=== PATIENT | male | born 1950 | race African-American/Black ===

== ENCOUNTER → 2018-09-19 | Day surgery (SDC) | payer MEDICARE ==
[2018-09-18 17:08] LABS: BASOPHILS # (AUTO) 0.1 (0.0-0.1); BASOPHILS % 0.9 % (0.0-1.0); EOSINOPHILS # (AUTO) 0.1 (0.0-0.4); EOSINOPHILS % 1.9 % (0.0-6.0); HEMATOCRIT 42.9 % (38.2-49.6); LYMPHOCYTES # (AUTO) 1.6 (1.0-3.2); LYMPHOCYTES % 28.6 % (18.0-39.1); MEAN CORPUSCULAR HEMOGLOBIN 27.3 pg (28-32); MEAN CORPUSCULAR HGB CONC 32.6 g/dL (31-35); MEAN CORPUSCULAR VOLUME 83.8 fL (81-99); MONOCYTES # (AUTO) 0.4 (0.2-0.8); MONOCYTES % 7.3 % (4.4-11.3); NEUTROPHILS # (AUTO) 3.5 (2.1-6.9); NEUTROPHILS % 61.1 % (38.7-80.0); PLATELET COUNT 173 x10e3/uL (140-360); RED BLOOD COUNT 5.12 x10e6/uL (4.3-5.7); RED CELL DISTRIBUTION WIDTH 13.9 % (11.7-14.4)
[~2018-09-19] MED LIST: ALDACTONE25 MG PO; ASPIR 8181 MG PO; ATORVASTATIN CA20 MG PO; AVALIDE; AVALIDE 300-251 EACH PO; COREG3.125 MG PO; CRESTOR; CRESTOR20 MG PO; ELIQUIS PO; FAMOTIDINE20 MG PO; FENTANYL CITRATE/PF 100MCG/2 ML INJ ONE; FUROSEMIDE40 MG PO; GLIPIZIDE5 MG PO; GLUCOVANCE; GLUCOVANCE 5-51 EACH PO; JANUVIA100 MG PO; METOPROLOL TART25 MG PO; MIDAZOLAM HCL 2 MG/2 ML VIAL ONE; PLAVIX; PLAVIX75 MG PO; POTASSIUM CHLO10 ME1 PO; PROPOFOL IV EMULSION 10 MG/ML 50 ML VIAL ONE; [UNRECOGNIZED DRUG - OTHER]; [UNRECOGNIZED DRUG - REMARK]
--- OUTSIDE RECORDS SUMMARY | 2018-09-19 06:39 | XMS REPORT ---
Author Author Aniket Mcdonald Organization [employer] Address Unknown Phone Unavailable Care Team Providers Care Rural Sociologist Name Role Phone Aniket Mcdonald Unavailable Allergies, Adverse Reactions, Alerts Substance Reaction Event Type N.K.D.A. 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 Active Problem Chronic systolic (congestive) heart failure I50.22 Active Problem Atherosclerosis of [place] arteries of extremity with intermittent claudication I70.219 Active Problem Arteriosclerosis of both carotid arteries I65.23 Active Problem Atherosclerosis of [place] artery of both lower extremities with intermittent claudication I70.213 Active Assessment Arteriosclerosis of both carotid arteries I65.23 Active Assessment 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 Active Problem History of CVA (cerebrovascular accident) Z86.73 Active Assessment Abnormal electrocardiogram R94.31 Active Problem 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 Active Problem Pure hypercholesterolemia E78.01 Active Problem 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 Active Problem Atherosclerotic heart disease of [place] coronary artery without angina pectoris I25.10 Active Assessment Atherosclerotic heart disease of [place] coronary artery without angina pectoris I25.10 Active Assessment 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 Active Assessment Shortness of breath R06.02 Active Assessment Stented coronary artery Z95.5 Active Problem H/O carotid endarterectomy Z98.89 Active Problem Shortness of breath R06.02 Active Assessment Chronic systolic (congestive) heart failure I50.22 Active Problem Carotid disease, bilateral I77.9 Active Medications Medication Code System Code Instructions Start Date End Date Status Dosage Entresto NDC 11124295688 24-26 MG Orally daily Active 1 tablet Crestor NDC 16985081117 20 mg Orally Once a day Active 1 tablet GlipiZIDE [facility] 14817197827 5 MG Orally Once a day Active 1 tablet Clopidogrel Bisulfate [facility] 11931162648 75 mg Orally Once a day Active 1 tablet Aspirin EC Low Dose [facility] 80224287295 81 MG Orally Once a day Active 1 tablet Furosemide [facility] 00594719818 40 mg Orally twice a day (bid) Active 1 tablet Spironolactone [facility] 76584755217 25 MG Orally daily Mar 10, 2016 Active 1 tablet Albuterol Sulfate [facility] [address]-26 108 (90 Base) MCG/ACT Inhalation as needed (prn) Active 1 tablet Carvedilol [facility] 57857989929 12.5 MG Orally Twice a day Active 1 tablet Vital Signs Date/Time: October 18, 2016 BMI 22.80 Index Weight 150 lbs Height 68 in Temperature 97.5 F Cardiac Monitoring Heart Rate 66 /min Blood Pressure Diastolic 70 mm Hg Blood Pressure Systolic 122 mm Hg Results No Known Results Summary Purpose [employer] Submission
--- OUTSIDE RECORDS SUMMARY | 2018-09-19 06:39 | XMS REPORT ---
Author Author Aniket Mcdonald Organization [employer] Address Unknown Phone Unavailable Care Team Providers Care X Ray Technician Name Role Phone Aniket Mcdonald Unavailable Allergies, Adverse Reactions, Alerts Substance Reaction Event Type N.K.D.A. 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 Problem Chronic systolic (congestive) heart failure I50.22 Active Problem Atherosclerosis of [place] arteries of extremity with intermittent claudication I70.219 Active Problem Arteriosclerosis of both carotid arteries I65.23 Active Problem Atherosclerosis of [place] artery of both lower extremities with intermittent claudication I70.213 Active Assessment Shortness of breath R06.02 Active Assessment Arteriosclerosis of both carotid arteries I65.23 Active Problem History of CVA (cerebrovascular accident) Z86.73 Active Assessment 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 Active Problem 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 Active Problem Pure hypercholesterolemia E78.01 Active Problem 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 Active Problem Atherosclerotic heart disease of [place] coronary artery without angina pectoris I25.10 Active Assessment 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 Active Assessment Chronic systolic (congestive) heart failure I50.22 Active Assessment Stented coronary artery Z95.5 Active Assessment Atherosclerotic heart disease of [place] coronary artery without angina pectoris I25.10 Active Problem H/O carotid endarterectomy Z98.89 Active Problem Shortness of breath R06.02 Active Assessment 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 Problem Carotid disease, bilateral I77.9 Active Medications Medication Code System Code Instructions Start Date End Date Status Dosage Eliquis ND 94277533624 5 MG Orally twice a day (bid) Feb 19, 2017 Active 1 tablet Aspirin 325 mg ND 0 325 mg orally daily Active one tab GlipiZIDE [facility] 99506962839 5 MG Orally Once a day Active 1 tablet Atorvastatin Calcium [facility] 05462218657 40 MG Orally Once a day Active 1 tablet Clopidogrel Bisulfate [facility] 10910344272 75 mg Orally Once a day Inactive 1 tablet Furosemide [facility] 43852519304 40 mg Orally once a day Active 1 tablet Albuterol Sulfate [facility] [address]-18 108 (90 Base) MCG/ACT Inhalation as needed (prn) Active 1 tablet Crestor [facility] 86063105373 20 mg Orally Once a day Inactive 1 tablet Famotidine [facility] 64910064112 20 MG Orally Once a day Active 1 tablet at bedtime Metoprolol Tartrate [facility] 51888269809 25 MG Orally Twice a day Active 1/2 half tablet Entresto [facility] 12919093157 24-26 MG Orally daily Active 1 tablet Vital Signs Date/Time: Feb 19, 2017 BMI 24.93 Index Weight 164 lbs Height 68 in Temperature 95.3 F Cardiac Monitoring Heart Rate 61 /min Blood Pressure Diastolic 78 mm Hg Blood Pressure Systolic 122 mm Hg Results No Known Results Summary Purpose [employer] Submission
--- OUTSIDE RECORDS SUMMARY | 2018-09-19 06:39 | XMS REPORT ---
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 Problem Chronic systolic (congestive) heart failure I50.22 Active Problem Atherosclerosis of [place] arteries of extremity with intermittent claudication I70.219 Active Problem Arteriosclerosis of both carotid arteries I65.23 Active Problem Atherosclerosis of [place] artery of both lower extremities with intermittent claudication I70.213 Active Problem History of CVA (cerebrovascular accident) Z86.73 Active Problem 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 Active Problem Pure hypercholesterolemia E78.01 Active Problem 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 Active Problem Atherosclerotic heart disease of [place] coronary artery without angina pectoris I25.10 Active Problem H/O carotid endarterectomy Z98.89 Active Problem Shortness of breath R06.02 Active Problem Abnormal electrocardiogram R94.31 Active Problem Carotid disease, bilateral I77.9 Active Problem Stented coronary artery Z95.5 Active Medications Medication Code System Code Instructions Start Date End Date Status Dosage Xarelto [facility] 26992780939 20 mg Orally Once a day Dec 04, 2017 Active 1 tablet with food Results No Known Results Summary Purpose [employer]Works Submission
--- OUTSIDE RECORDS SUMMARY | 2018-09-19 06:39 | XMS REPORT ---
Author Author Tressa Mcdonald Organization [employer] Address Unknown Phone Unavailable Care Team Providers Care Senior Solutions Architect Name Role Phone Tressa Mcdonald CP Unavailable Allergies, Adverse Reactions, Alerts Substance Reaction Event Type N.K.D.A. 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 Active Problem Chronic systolic (congestive) heart failure I50.22 Active Problem Atherosclerosis of [place] arteries of extremity with intermittent claudication I70.219 Active Problem Arteriosclerosis of both carotid arteries I65.23 Active Problem Atherosclerosis of [place] artery of both lower extremities with intermittent claudication I70.213 Active Assessment Abnormal electrocardiogram R94.31 Active Assessment Pure hypercholesterolemia E78.01 Active Problem History of CVA (cerebrovascular accident) Z86.73 Active Assessment Atherosclerosis of [place] arteries of extremity with intermittent claudication I70.219 Active Problem 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 Active Problem Pure hypercholesterolemia E78.01 Active Problem 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 Active Problem Atherosclerotic heart disease of [place] coronary artery without angina pectoris I25.10 Active Assessment Atherosclerotic heart disease of [place] coronary artery without angina pectoris I25.10 Active Assessment Shortness of breath R06.02 Active Assessment 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 Active Assessment Carotid disease, bilateral I77.9 Active Problem H/O carotid endarterectomy Z98.89 Active Problem Shortness of breath R06.02 Active Assessment Chronic systolic (congestive) heart failure I50.22 Active Problem Carotid disease, bilateral I77.9 Active Medications Medication Code System Code Instructions Start Date End Date Status Dosage Metformin NDC 0 500 mg Oral twice a day (bid) July 12, 2015 Active 1 tab Januvia [facility] 80808588819 100 MG Orally Once a day Active 1 tablet Potassium Chloride Vaishnavi ER [facility] 47152901287 10 MEQ Orally Twice a day Feb 07, 2016 Active 1 tablet Aspirin EC Low Dose [facility] 24312735464 81 MG Orally Once a day Active 1 tablet Carvedilol [facility] 38214988824 12.5 MG Orally Twice a day Active 1 tablet Spironolactone [facility] 39132644646 25 MG Orally daily Active 1 tablet Crestor [facility] 82624916525 20 mg Orally Once a day Active 1 tablet Losartan Potassium [facility] 31426493465 100 mg Orally Once a day Active 1 tablet Losartan Potassium [facility] 57272199503 100 mg Orally Once a day Active 1 tablet Clopidogrel Bisulfate [facility] 86941170456 75 mg Orally Once a day Active 1 tablet Furosemide [facility] 15563846342 40 mg Orally three times a day (tid) Active 1 tablet Vital Signs Date/Time: May 13, 2015 BMI 22.80 Index Weight 150 lbs Height 68 in Temperature 96.2 F Cardiac Monitoring Heart Rate 91 /min Blood Pressure Diastolic 65 mm Hg Blood Pressure Systolic 122 mm Hg Results No Known Results Summary Purpose [employer]ClinicalWorks Submission
--- OUTSIDE RECORDS SUMMARY | 2018-09-19 06:39 | XMS REPORT ---
Author Author Aniket Mcdonald Organization [employer] Address Unknown Phone Unavailable Care Team Providers Care Grind Operator Name Role Phone Aniket Mcdonald Unavailable Allergies, Adverse Reactions, Alerts Substance Reaction Event Type N.K.D.A. 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 Problem Chronic systolic (congestive) heart failure I50.22 Active Problem Atherosclerosis of [place] arteries of extremity with intermittent claudication I70.219 Active Problem Arteriosclerosis of both carotid arteries I65.23 Active Problem Atherosclerosis of [place] artery of both lower extremities with intermittent claudication I70.213 Active Assessment Arteriosclerosis of both carotid arteries I65.23 Active Assessment 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 Active Problem History of CVA (cerebrovascular accident) Z86.73 Active Assessment Abnormal electrocardiogram R94.31 Active Problem 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 Active Problem Pure hypercholesterolemia E78.01 Active Problem 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 Active Problem Atherosclerotic heart disease of [place] coronary artery without angina pectoris I25.10 Active Assessment Atherosclerotic heart disease of [place] coronary artery without angina pectoris I25.10 Active [...] Instructions Start Date End Date Status Dosage Clopidogrel Bisulfate [facility] 87598175759 75 mg Orally Once a day Active 1 tablet Entresto [facility] 10663934364 24-26 MG Orally daily Active 1 tablet GlipiZIDE [facility] 60636910592 5 MG Orally Once a day Active 1 tablet Famotidine [facility] 18055909221 20 MG Orally Once a day Active 1 tablet at bedtime Aspirin 325 mg ND 0 325 mg orally daily Active one tab Atorvastatin Calcium ND 93849706512 40 MG Orally Once a day Active 1 tablet Furosemide ND 97940953919 40 mg Orally once a day Active 1 tablet Metoprolol Tartrate [facility] 26791281580 25 MG Orally Twice a day Active 1/2 half tablet Albuterol Sulfate [facility] [address]-25 108 (90 Base) MCG/ACT Inhalation as needed (prn) Active 1 tablet Crestor [facility] 18300556931 20 mg Orally Once a day Active 1 tablet Vital Signs Date/Time: Nov 22, 2016 BMI 23.57 Index Weight 155 lbs Height 68 in Temperature 98.6 F Cardiac Monitoring Heart Rate 71 /min Blood Pressure Diastolic 80 mm Hg Blood Pressure Systolic 132 mm Hg Results No Known Results Summary Purpose eClinicalWorks Submission
--- OUTSIDE RECORDS SUMMARY | 2018-09-19 06:39 | XMS REPORT | Continuity of Care Document ---
Author Author [facility] Interface Address Unknown Phone Unavailable Problems Problem Status Onset Date Classification Date Reported Comments Source DM w/ complication Active Diagnosis 01/04/2018 Tressa Mcdonald Chronic systolic heart failure Active Problem 01/04/2018 Tressa Mcdonald Carotid disease, bilateral Active Problem 01/04/2018 Tressa Mcdonald Arteriosclerosis of both carotid arteries Active Problem 01/04/2018 Tressa Mcdonald ICD in place Active Problem 01/04/2018 Tressa Mcdonald Atherosclerosis of [place] artery of both lower extremities with intermittent claudication Active Diagnosis 01/04/2018 Tressa Mcdonald Pure hypercholesterolemia Active Diagnosis 01/04/2018 Tressa Mcdonald Atherosclerosis of [place] arteries of extremity with intermittent claudication Active Problem 01/04/2018 Tressa Mcdonald Atherosclerotic heart disease of [place] coronary artery without angina pectoris Active Problem 01/04/2018 Tressa Mcdonald Atherosclerosis of coronary artery of [place] heart with angina pectoris Active Problem 01/04/2018 Tressa Mcdonald Stented coronary artery Active Problem 01/04/2018 Tressa Mcdonald H/O carotid endarterectomy Active Problem 01/04/2018 Tressa Mcdonald Shortness of breath Active Diagnosis 01/04/2018 Tressa Mcdonald Abnormal electrocardiogram Active Problem 01/04/2018 Tressa Mcdonald History of CVA Active Diagnosis 01/04/2018 Tressa Mcdonald ICD battery depletion Active Diagnosis 05/24/2017 Tressa Mcdonald Poor compliance Active Diagnosis 05/24/2017 Tressa Mcdonald 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 Active Diagnosis 12/12/2017 Tressa Mcdonald Angina Active Problem 06/23/2015 Tressa Mcdonald Mitral valve disorders Active Problem 06/23/2015 Tressa Mcdonald Other nonspecific abnormal cardiovascular system function study Active Problem 06/23/2015 Tressa Mcdonald Carotid artherosclerosis w/o infarction Active Problem 06/23/2015 Tressa Mcdonald Unspecified essential hypertension Active Problem 06/23/2015 Tressa Mcdonald CAD, [place] Coronary Artery Active Problem 06/23/2015 Tressa Mcdonald Shortness of breath Active Problem 06/23/2015 Tressa Mcdonald Hypercholesterolemia Active Problem 06/23/2015 Tressa Mcdonald Abnormal EKG Active Problem 06/23/2015 Tressa Mcdonald Postsurgical percutaneous transluminal coronary angioplasty status Active Problem 06/23/2015 Tressa Mcdonald HTN heart dis benign, without CHF Active Problem 06/23/2015 Tressa Mcdonald PTCA Status Active Problem 06/23/2015 Tressa Mcdonald Nonrheumatic tricuspid valve disorder Active Problem 06/23/2015 Tressa Mcdonald Nonrheumatic mitral insufficiency Active Problem 06/23/2015 Tressa Mcdonald Diabetes mellitus with complication Active Problem 06/23/2015 Tressa Mcdonald CHF Chronic Systolic Heart Failure Active Problem 06/23/2015 Tressa Mcdonald Benign hypertensive heart disease with heart failure Active Problem 06/23/2015 Tressa Mcdonald 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 Active Problem 06/23/2015 Tressa Mcdonald Pure hypercholesterolemia Active Problem 06/23/2015 Tressa Mcdonald Other ill-defined heart diseases Active Problem 06/23/2015 Tressa Mcdonald Carotid artery disease Active Problem 06/23/2015 Tressa Mcdonald Atherosclerosis of leg with intermittent claudication Active Problem 06/23/2015 Tressa Mcdonald Medications Medication Details Route Status Patient Instructions Ordering Provider Order Date Source Xarelto 1 tablet with food Orally Active 20 mg Orally Once a day Jeroudi 12/04/2017 Tressa Mcdonald Eliquis 1 tablet Orally Active 5 MG Orally twice a day (bid) Jeroudi 02/19/2017 Tressa Mcdonald Spironolactone 1 tablet Orally Active 25 MG Orally daily Jeroudi 03/10/2016 Tressa Mcdonald Potassium Chloride Vaishnavi ER 1 tablet Orally Active 10 MEQ Orally Twice a day Jeroudi 02/07/2016 Tressa Mcdonald Metformin 1 tab Oral Active 500 mg Oral twice a day (bid) Jeroudi 07/12/2015 Tressa Mcdonald Metformin 1 tab Oral Active 500 mg Oral twice a day (bid) Jeroudi 07/12/2015 Tressa Irina Miramontessavage Zaroxolyn 1 tablet Orally Active 5 MG Orally daily PRN [facility] 06/22/2015 [facility] Zaroxolyn 1 tablet Orally Active 5 MG Orally daily PRN [facility] 06/22/2015 [facility] Clopidogrel Bisulfate 1 tablet Orally Active 75 mg Orally Once a day [facility] Entresto 1 tablet Orally Active 24-26 MG Orally daily [facility] GlipiZIDE 1 tablet Orally Active 5 MG Orally Once a day [facility] Famotidine 1 tablet at bedtime Orally Active 20 MG Orally Once a day [facility] Aspirin 325 mg one tab orally Active 325 mg orally daily [facility] Atorvastatin Calcium 1 tablet Orally Active 40 MG Orally Once a day [facility] Furosemide 1 tablet Orally Active 40 mg Orally once a day [facility] Metoprolol Tartrate 1/2 half tablet Orally Active 25 MG Orally Twice a day [facility] Albuterol Sulfate 1 tablet Inhalation Active 108 (90 Base) MCG/ACT Inhalation as needed (prn) [facility] Crestor 1 tablet Orally Active 20 mg Orally Once a day [facility] Aspirin EC Low Dose 1 tablet Orally Active 81 MG Orally Once a day [facility] Carvedilol 1 tablet Orally Active 12.5 MG Orally Twice a day [facility] Januvia 1 tablet Orally Active 100 MG Orally Once a day [facility] Spironolactone 1 tablet Orally Active 25 MG Orally daily [facility] Losartan Potassium 1 tablet Orally Active 100 mg Orally Once a day [facility] Amoxicillin-Pot Clavulanate not defined Orally Active 600-42.9 MG/5ML Orally [facility] Lisinopril 1/2 half tablet Orally Active 5 MG Orally Once a day [facility] Klor-Con M10 1 tablet Orally Active 10 MEQ Orally Twice a day [facility] Albuterol Sulfate 1 tablet Orally Active 2 MG Orally Three times a day Jerdi Tressa Mcdonald Janumet 1 tablet with meals Orally Active 50-500 MG Orally daily Jerdi [facility] [place] Potassium Chloride Vaishnavi ER 1 tablet Orally Active 10 MEQ Orally Twice a day Jerdi [facility] [place] Vitamin D 1 tablet Orally Active 2000 UNIT Orally Once a day [facility] [place] Januvia 1 tablet Orally Active 25 MG Orally daily Jerdi [facility] Irina [facility] Januvia 1 tablet Orally Active 25 MG Orally daily [facility] Carvedilol 1 tablet Orally Active 12.5 MG Orally [facility] Allergies, Adverse Reactions, Alerts Substance Category Reaction Severity Reaction type Status Date Reported Comments Source N.K.D.A. Adverse Reaction Info Not Available Adverse Reaction Active 09/19/2017 Karynamed O [place] Immunizations Immunization Date Given Site Status Last Updated Comments Source Results Order Name Results Value Reference Range Date Interpretation Comments Source Vital Signs Vital Sign Value Date Comments Source Weight 171 09/19/2017 Karynamed [place] Height 68 09/19/2017 Mohamed O [place] Temperature Oral (F) 96.4 F 09/19/2017 [facility] [place] Heart Rate 64 09/19/2017 Mohamed [facility] [place] Diastolic (mm Hg) 80 09/19/2017 Mohamed O [place] Systolic (mm Hg) 130 09/19/2017 [place]named [place] Weight 168 [facility]22[facility]2017 [facility] Height 68 05/22/2017 Mohamed O [place] Temperature Oral (F) 96.0 F 05/22/2017 Mohamed O [place] Heart Rate 64 05/22/2017 Mohamed O [place] Diastolic (mm Hg) 78 05/22/2017 Mohamed O [place] Systolic (mm Hg) 122 05/22/2017 Karynamed [place] Weight 164 02/19/2017 Mohamed O [place] Height 68 02/19/2017 Mohamed O [place] Temperature Oral (F) 95.3 F 02/19/2017 Mohamed O [place] Heart Rate 61 02/19/2017 Mohamed O [place] Diastolic (mm Hg) 78 02/19/2017 Mohamed O [place] Systolic (mm Hg) 122 02/19/2017 Mohamed O [place] Weight 155 11/22/2016 Mohamed O [place] Height 68 11/22/2016 Mohamed O [place] Temperature Oral (F) 98.6 F 11/22/2016 Mohamed O [place] Heart Rate 71 11/22/2016 Mohamed O [place] Diastolic (mm Hg) 80 11/22/2016 Mohamed O [place] Systolic (mm Hg) 132 11/22/2016 Mohamed O [place] Weight 150 10/18/2016 Mohamed O [place] Height 68 10/18/2016 Mohamed O [place] Temperature Oral (F) 97.5 F 10/18/2016 Mohamed O [place] Heart Rate 66 10/18/2016 Mohamed O [place] Diastolic (mm Hg) 70 10/18/2016 Mohamed O [place] Systolic (mm Hg) 122 10/18/2016 Mohamed O [place] Weight 141 07/12/2015 Mohamed O [place] Height 68 07/12/2015 Mohamed O [place] Temperature Oral (F) 96.2 F 07/12/2015 Mohamed O [place] Heart Rate 90 07/12/2015 Mohamed O [place] Diastolic (mm Hg) 60 07/12/2015 Mohamed O [place] Systolic (mm Hg) 122 07/12/2015 Mohamed O [place] Weight 150 05/13/2015 Mohamed O [place] Height 68 05/13/2015 Mohamed O [place] Temperature Oral (F) 96.2 F 05/13/2015 Mohamed O [place] Heart Rate 91 05/13/2015 Mohamed O [place] Diastolic (mm Hg) 65 05/13/2015 Mohamed O [place] Systolic (mm Hg) 122 05/13/2015 Mohamed O Jeroudi Encounters Location Location Details Encounter Type Encounter Number Reason For Visit Attending Provider ADM Date DC Date Status Source MD DAREK Grissom Unknown [id number] 06/02/2014 06/02/2014 MD DAREK Gong Unknown [id number] 06/02/2014 06/02/2014 Tressa Mcdonald MD PA Unknown [id number] 04/13/2015 04/13/2015 Tressa Mcdonald MD PA Unknown [id number] 04/13/2015 04/13/2015 Tressa Mcdonald MD PA Unknown [id number] 06/22/2015 06/22/2015 Tressa Mcdonald Procedures Procedure Code Date Perfomer Comments Source
--- OUTSIDE RECORDS SUMMARY | 2018-09-19 06:39 | XMS REPORT ---
Author Author Aniket Mcdonald Organization [employer] Address Unknown Phone Unavailable Care Team Providers Care Traffic Operations Manager Name Role Phone Aniket Mcdonald Unavailable Allergies, Adverse Reactions, Alerts Substance Reaction Event Type N.K.D.A. 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 Active Problem Chronic systolic (congestive) heart failure I50.22 Active Problem Atherosclerosis of [place] arteries of extremity with intermittent claudication I70.219 Active Problem Arteriosclerosis of both carotid arteries I65.23 Active Problem Atherosclerosis of [place] artery of both lower extremities with intermittent claudication I70.213 Active Assessment Arteriosclerosis of both carotid arteries I65.23 Active Assessment 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 Active Problem History of CVA (cerebrovascular accident) Z86.73 Active Assessment Abnormal electrocardiogram R94.31 Active Problem 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 Active Problem Pure hypercholesterolemia E78.01 Active Problem 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 Active Problem Atherosclerotic heart disease of [place] coronary artery without angina pectoris I25.10 Active Assessment Atherosclerotic heart disease of [place] coronary artery without angina pectoris I25.10 Active [...] Instructions Start Date End Date Status Dosage Famotidine [facility] 09990191134 20 MG Orally Once a day Active 1 tablet at bedtime Vitamin D [facility] 09704159686 2000 UNIT Orally Once a day Active 1 tablet Entresto [facility] 04365175585 24-26 MG Orally daily Active 1 tablet Metoprolol Tartrate [facility] 83718867946 25 MG Orally Twice a day Active 1/2 half tablet GlipiZIDE [facility] 33816236804 5 MG Orally Once a day Active 1 tablet Januvia [facility] 52047135699 25 MG Orally daily Active 1 tablet Furosemide [facility] 23486649812 40 mg Orally once a day Active 1 tablet Atorvastatin Calcium [facility] 98693420260 40 MG Orally Once a day Active 1 tablet Eliquis [facility] 97342369106 5 MG Orally twice a day (bid) Feb 19, 2017 Active 1 tablet Albuterol Sulfate [facility] [address]-86 108 (90 Base) MCG/ACT Inhalation as needed (prn) Active 1 tablet Vital Signs Date/Time: September 19, 2017 BMI 26.00 Index Weight 171 lbs Height 68 in Temperature 96.4 F Cardiac Monitoring Heart Rate 64 /min Blood Pressure Diastolic 80 mm Hg Blood Pressure Systolic 130 mm Hg Results No Known Results Summary Purpose [employer] Submission
--- OUTSIDE RECORDS SUMMARY | 2018-09-19 06:39 | XMS REPORT ---
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 Active Problem Atherosclerosis of [place] artery of both lower extremities with intermittent claudication I70.213 Active Problem Pure hypercholesterolemia E78.01 Active Problem Atherosclerosis of [place] arteries of extremity with intermittent claudication I70.219 Active Problem Atherosclerotic heart disease of [place] coronary artery without angina pectoris I25.10 Active Problem 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
--- OUTSIDE RECORDS SUMMARY | 2018-09-19 06:39 | XMS REPORT ---
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 Active Problem Atherosclerosis of [place] artery of both lower extremities with intermittent claudication I70.213 Active Problem Pure hypercholesterolemia E78.01 Active Problem Atherosclerosis of [place] arteries of extremity with intermittent claudication I70.219 Active Problem Atherosclerotic heart disease of [place] coronary artery without angina pectoris I25.10 Active Problem 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
--- OUTSIDE RECORDS SUMMARY | 2018-09-19 06:39 | XMS REPORT ---
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 Active Problem Chronic systolic (congestive) heart failure I50.22 Active Problem Atherosclerosis of [place] arteries of extremity with intermittent claudication I70.219 Active Problem Arteriosclerosis of both carotid arteries I65.23 Active Problem Atherosclerosis of [place] artery of both lower extremities with intermittent claudication I70.213 Active Problem History of CVA (cerebrovascular accident) Z86.73 Active Problem 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 Active Problem Pure hypercholesterolemia E78.01 Active Problem 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 Active Problem Atherosclerotic heart disease of [place] coronary artery without angina pectoris I25.10 Active Problem H/O carotid endarterectomy Z98.89 Active Problem Shortness of breath R06.02 Active Assessment 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
--- OUTSIDE RECORDS SUMMARY | 2018-09-19 06:39 | XMS REPORT ---
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 Problem Chronic systolic (congestive) heart failure I50.22 Active Problem Atherosclerosis of [place] arteries of extremity with intermittent claudication I70.219 Active Problem Arteriosclerosis of both carotid arteries I65.23 Active Problem Atherosclerosis of [place] artery of both lower extremities with intermittent claudication I70.213 Active Problem History of CVA (cerebrovascular accident) Z86.73 Active Problem 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 Active Problem Pure hypercholesterolemia E78.01 Active Problem 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 Active Problem Atherosclerotic heart disease of [place] coronary artery without angina pectoris I25.10 Active Problem H/O carotid endarterectomy Z98.89 Active Problem Shortness of breath R06.02 Active Assessment 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
--- OUTSIDE RECORDS SUMMARY | 2018-09-19 06:39 | XMS REPORT ---
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 Active Problem Chronic systolic (congestive) heart failure I50.22 Active Problem Atherosclerosis of [place] arteries of extremity with intermittent claudication I70.219 Active Problem Arteriosclerosis of both carotid arteries I65.23 Active Problem Atherosclerosis of [place] artery of both lower extremities with intermittent claudication I70.213 Active Assessment Abnormal electrocardiogram R94.31 Active Assessment Pure hypercholesterolemia E78.01 Active Problem History of CVA (cerebrovascular accident) Z86.73 Active Assessment Atherosclerosis of [place] arteries of extremity with intermittent claudication I70.219 Active Problem 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 Active Problem Pure hypercholesterolemia E78.01 Active Problem 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 Active Problem Atherosclerotic heart disease of [place] coronary artery without angina pectoris I25.10 Active Assessment Atherosclerotic heart disease of [place] coronary artery without angina pectoris I25.10 Active Assessment Shortness of breath R06.02 Active Assessment 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 Active Assessment Carotid disease, bilateral I77.9 Active Problem H/O carotid endarterectomy Z98.89 Active Problem Shortness of breath R06.02 Active Assessment Chronic systolic (congestive) heart failure I50.22 Active Problem Carotid disease, bilateral I77.9 Active Medications Medication Code System Code Instructions Start Date End Date Status Dosage Crestor [facility] 47166308402 20 mg Orally Once a day Active 1 tablet Carvedilol [facility] 49841050868 12.5 MG Orally Twice a day Active 1 tablet Amoxicillin-Pot Clavulanate [facility] 89850796073 600-42.9 MG/5ML Orally Active not defined Clopidogrel Bisulfate ND 44657086128 75 mg Orally Once a day Active 1 tablet Lisinopril ND 37755600970 5 MG Orally Once a day Active 1/2 half tablet Zaroxolyn [facility] 91441785365 5 MG Orally daily PRN June 22, 2015 Active 1 tablet Furosemide [facility] 77649116004 40 mg Orally three times a day (tid) Active 1 tablet Aspirin EC Low Dose ND 20347253058 81 MG Orally Once a day Active 1 tablet Klor-Con M10 [facility] 02890136923 10 MEQ Orally Twice a day Active 1 tablet Albuterol Sulfate [facility] 11511716666 2 MG Orally Three times a day Active 1 tablet Janumet [facility] 70313417082 50-500 MG Orally daily Active 1 tablet with meals Spironolactone [facility] 91050408167 25 MG Orally daily Active 1 tablet Potassium Chloride Vaishnavi ER [facility] 11267684760 10 MEQ Orally Twice a day Active 1 tablet Metformin NDC 0 500 mg Oral twice a day (bid) July 12, 2015 Active 1 tab Vital Signs Date/Time: July 12, 2015 BMI 21.44 Index Weight 141 lbs Height 68 in Temperature 96.2 F Cardiac Monitoring Heart Rate 90 /min Blood Pressure Diastolic 60 mm Hg Blood Pressure Systolic 122 mm Hg Results No Known Results Summary Purpose [employer]Works Submission
--- OUTSIDE RECORDS SUMMARY | 2018-09-19 06:39 | XMS REPORT ---
Author Author Tressa Mcdonald Organization [employer] Address Unknown Phone Unavailable Care Team Providers Care Vial Gauger Name Role Phone Tressa Mcdonald CP Unavailable Allergies, Adverse Reactions, Alerts Substance Reaction Event Type N.K.D.A. 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 Problem Chronic systolic (congestive) heart failure I50.22 Active Problem Atherosclerosis of [place] arteries of extremity with intermittent claudication I70.219 Active Problem Arteriosclerosis of both carotid arteries I65.23 Active Problem Atherosclerosis of [place] artery of both lower extremities with intermittent claudication I70.213 Active Assessment Arteriosclerosis of both carotid arteries I65.23 Active Assessment 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 Active Problem History of CVA (cerebrovascular accident) Z86.73 Active Assessment Abnormal electrocardiogram R94.31 Active Problem 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 Active Problem Pure hypercholesterolemia E78.01 Active Problem 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 Active Problem Atherosclerotic heart disease of [place] coronary artery without angina pectoris I25.10 Active Assessment Atherosclerotic heart disease of [place] coronary artery without angina pectoris I25.10 Active [...] Instructions Start Date End Date Status Dosage GlipiZIDE [facility] 45673172727 5 MG Orally Once a day Active 1 tablet Albuterol Sulfate [facility] [address]-40 108 (90 Base) MCG/ACT Inhalation as needed (prn) Active 1 tablet Vitamin D [facility] 91078026700 2000 UNIT Orally Once a day Active 1 tablet Entresto [facility] 65803934350 24-26 MG Orally daily Active 1 tablet Aspirin 325 mg ND 0 325 mg orally daily Active one tab Crestor [facility] 64727033910 20 mg Orally Once a day Active 1 tablet Atorvastatin Calcium [facility] 58532869971 40 MG Orally Once a day Active 1 tablet Januvia [facility] [address]-07 25 MG Orally daily Active 1 tablet Furosemide [facility] 59529041095 40 mg Orally once a day Active 1 tablet Metoprolol Tartrate [facility] 86107715048 25 MG Orally Twice a day Active 1/2 half tablet Eliquis [facility] 61798340251 5 MG Orally twice a day (bid) Feb 19, 2017 Active 1 tablet Famotidine [facility] 38648455051 20 MG Orally Once a day Active 1 tablet at bedtime Vital Signs Date/Time: May 22, 2017 BMI 25.54 Index Weight 168 lbs Height 68 in Temperature 96.0 F Cardiac Monitoring Heart Rate 64 /min Blood Pressure Diastolic 78 mm Hg Blood Pressure Systolic 122 mm Hg Results No Known Results Summary Purpose [employer] Submission
--- OUTSIDE RECORDS SUMMARY | 2018-09-19 06:40 | XMS REPORT ---
Author Author Tressa Mcdonald Organization [employer] Address Unknown Phone Unavailable Care Team Providers Care Instrument Man Name Role Phone Tressa Mcdonald CP Unavailable Encounters Encounter Location Date Unknown Tress[place]cdonald [place] June 02, 2014 Unknown Tressa Mcdonald [place] Apr 13, 2015 Problems Problem Type Condition ICD-9 Code Onset Dates Condition Status Problem Mitral valve disorders 424.0 Active Problem Carotid artherosclerosis w/o infarction 433.10 Active Problem Angina 413.9 Active Problem Other nonspecific abnormal cardiovascular system function study 794.39 Active Problem Unspecified essential hypertension 401.9 Active Problem CAD, [place] Coronary Artery 414.01 Active Problem Shortness of breath 786.05 Active Problem Hypercholesterolemia 272.0 Active Problem Abnormal electrocardiogram R94.31 Active Problem Abnormal EKG 794.31 Active Problem Postsurgical percutaneous transluminal coronary angioplasty status Z98.61 Active Problem HTN heart dis benign, without CHF 402.10 Active Problem 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 Active Problem Chronic systolic (congestive) heart failure I50.22 Active Problem Carotid disease, bilateral I77.9 Active Problem Nonrheumatic mitral (valve) insufficiency I34.0 Active Problem Other ill-defined heart diseases I51.89 Active Problem CHF Chronic Systolic Heart Failure 428.22 Active Problem Benign hypertensive heart disease with heart failure 402.11 Active Problem 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 Active Problem PTCA Status V45.82 Active Problem Pure hypercholesterolemia E78.0 Active Problem Atherosclerosis of [place] arteries of extremity with intermittent claudication I70.219 Active Problem 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 Problem 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 Active Problem Atherosclerosis of leg with intermittent claudication 440.21 Active Problem ICD (implantable cardioverter-defibrillator) battery depletion Z45.02 Active Problem Diabetes mellitus with complication 250.90 Active Problem Carotid artery disease 447.9 Active Problem H/O carotid endarterectomy Z98.89 Active Problem Shortness of breath R06.02 Active Problem Poor compliance Z91.19 Active Problem Stented coronary artery Z95.5 Active Medications Medication Code System Code Instructions Start Date End Date Status Dosage Metformin Unknown 0 500 mg Oral twice a day (bid) July 12, 2015 Active 1 tab Carvedilol [facility] [address]-28 12.5 MG Orally Twice a day Active 1 tablet Social History Social History Element Qualifiers Date Reported Smoking . Status Never Smoker May 13, 2015 Alcohol Use No. May 13, 2015 Alcohol Screening: No. Points: 0, Interpretation: Negative May 13, 2015 Marital Status: . May 13, 2015 Do you drink alcohol? No. 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
--- OUTSIDE RECORDS SUMMARY | 2018-09-19 06:40 | XMS REPORT ---
Author Author Tressa Mcdonald Organization [employer] Address Unknown Phone Unavailable Care Team Providers Care Boilermaker Name Role Phone Tressa Mcdonald Unavailable Encounters Encounter Location Date Unknown Tressa Mcdonald [place] June 02, 2014 Unknown Tressa Mcdonald [place] Apr 13, 2015 Unknown Tressa Mcdonald [place] June 22, 2015 Problems Problem Type Condition ICD-9 Code Onset Dates Condition Status Problem Angina 413.9 Active Problem Mitral valve disorders 424.0 Active Problem Other nonspecific abnormal cardiovascular system function study 794.39 Active Problem Carotid artherosclerosis w/o infarction 433.10 Active Problem Unspecified essential hypertension 401.9 Active Problem CAD, [place] Coronary Artery 414.01 Active Problem Shortness of breath 786.05 Active Problem Hypercholesterolemia 272.0 Active Problem Abnormal EKG 794.31 Active Problem Postsurgical percutaneous transluminal coronary angioplasty status Z98.61 Active Problem HTN heart dis benign, without CHF 402.10 Active Problem 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 Active Problem PTCA Status V45.82 Active Problem Carotid disease, bilateral I77.9 Active Problem Atherosclerosis of [place] arteries of extremity with intermittent claudication I70.219 Active Problem Chronic systolic (congestive) heart failure I50.22 Active Problem 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 Active Problem Nonrheumatic mitral (valve) insufficiency I34.0 Active Problem Diabetes mellitus with complication 250.90 Active Problem CHF Chronic Systolic Heart Failure 428.22 Active Problem Atherosclerotic heart disease of [place] coronary artery without angina pectoris I25.10 Active Problem Benign hypertensive heart disease with heart failure 402.11 Active Problem 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 Active Problem Pure hypercholesterolemia E78.0 Active Problem Other ill-defined heart diseases I51.89 Active Problem 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 Problem ICD (implantable cardioverter-defibrillator) battery depletion Z45.02 Active Problem Poor compliance Z91.19 Active Problem Carotid artery disease 447.9 Active Problem Atherosclerosis of leg with intermittent claudication 440.21 Active Problem Shortness of breath R06.02 Active Problem Abnormal electrocardiogram R94.31 Active Problem Stented coronary artery Z95.5 Active Problem H/O carotid endarterectomy Z98.89 Active Medications Medication Code System Code Instructions Start Date End Date Status Dosage Zaroxolyn MEDISPAN [address]-47 5 MG Orally daily PRN June 22, 2015 Active 1 tablet Social History Social History Element Qualifiers Date Reported Smoking . Status Never Smoker May 13, 2015 Alcohol Use No. May 13, 2015 Alcohol Screening: No. Points: 0, Interpretation: Negative May 13, 2015 Marital Status: . May 13, 2015 Do you drink alcohol? No. 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
[2018-09-19 10:55] VITALS: BP 149/91
== END | disposition home or self-care (01) ==
LOC: ENDO 06:30
PROVIDERS: ATTEND Internal Medicine Gastroenterology
DX: Z12.11 Encounter for screening for malignant neoplasm of colon (principal); K62.1 Rectal polyp; K64.8 Other hemorrhoids; Z71.3 Dietary counseling and surveillance; I10 Essential (primary) hypertension; E11.9 Type 2 diabetes mellitus without complications; I69.354 Hemiplegia and hemiparesis following cerebral infarction affecting left non-dominant side; Z01.810 Encounter for preprocedural cardiovascular examination; Z01.812 Encounter for preprocedural laboratory examination; Z95.810 Presence of automatic (implantable) cardiac defibrillator
CPT/HCPCS: 36415 ×2; 45385; 82948; 85025; 88305; 93005; J2250; J2704; 45378

== ENCOUNTER 2021-10-20 19:13 | Emergency (ER) | payer BC, MEDICARE, OTHER ==
[~2021-10-20] VITALS: Ht 167.6 cm; Wt 77.1 kg
[~2021-10-20 19:13] MED LIST changes: -FENTANYL CITRATE/PF 100MCG/2 ML INJ ONE; -MIDAZOLAM HCL 2 MG/2 ML VIAL ONE; -PROPOFOL IV EMULSION 10 MG/ML 50 ML VIAL ONE; +SODIUM CHLORIDE FLUSH 10 ML SYR IV PRN
[2021-10-20] MEDS ORDERED: ONDANSETRON HCL INJ 2MG/ML 2ML 2 MG/ML VIAL IV STA (19:48)
[2021-10-20] MEDS ORDERED: ASPIRIN 325 MG TAB PO ONE (20:00)
[2021-10-20] MEDS ORDERED: SODIUM CHLORIDE 0.9% 1000ML 1,000 ML IV ONE (20:00)
[2021-10-20 20:16] LABS: BASOPHILS # (AUTO) 0.1 (0.0-0.1); BASOPHILS % 0.9 % (0.0-1.0); EOSINOPHILS # (AUTO) 0.1 (0.0-0.4); EOSINOPHILS % 1.4 % (0.0-6.0); HEMOGLOBIN 11.8 g/dL (14.0-18.0); LYMPHOCYTES # (AUTO) 1.9 (1.0-3.2); LYMPHOCYTES % 26.3 % (18.0-39.1); MEAN CORPUSCULAR HEMOGLOBIN 27.3 pg (28-32); MEAN CORPUSCULAR HGB CONC 31.9 g/dL (31-35); MEAN CORPUSCULAR VOLUME 85.6 fL (81-99); MONOCYTES # (AUTO) 0.7 (0.2-0.8); MONOCYTES % 9.9 % (4.4-11.3); NEUTROPHILS # (AUTO) 4.5 (2.1-6.9); NEUTROPHILS % 61.2 % (38.7-80.0); PLATELET COUNT 196 x10e3/uL (140-360); RED BLOOD COUNT 4.32 x10e6/uL (4.3-5.7); RED CELL DISTRIBUTION WIDTH 15.8 % (11.7-14.4)
[2021-10-20 20:26] LABS: INR 2.79; PARTIAL THROMBOPLASTIN TIME 39.4 seconds (23.8-35.5); PROTHROMBIN TIME 31.4 seconds (11.9-14.5)
[2021-10-20 20:35] LABS: ALBUMIN 3.4 g/dL (3.5-5.0); ALBUMIN/GLOBULIN RATIO 0.9 (0.8-2.0); CALCIUM 8.6 mg/dL (8.4-10.2); CREATININE, SERUM 1.43 mg/dL (0.72-1.25)
[2021-10-20] MEDS ORDERED: ONDANSETRON ODT4 MG PO (23:20)
== END 2021-10-21 00:09 | disposition home or self-care (01) ==
LOC: ER 19:27
DX: R07.89 Other chest pain (principal); E11.65 Type 2 diabetes mellitus with hyperglycemia; R11.2 Nausea with vomiting, unspecified; I10 Essential (primary) hypertension; Z95.5 Presence of coronary angioplasty implant and graft; R94.31 Abnormal electrocardiogram [ECG] [EKG]
CPT/HCPCS: 36415; 71045; 80053; 83690; 84484; 85025; 85610; 85730; 93005; 99284; J2405

== ENCOUNTER 2021-11-02 00:57 | Inpatient (IN) | payer MEDICARE, OTHER ==
[~2021-11-02] VITALS: Ht 175.3 cm; Wt 71.8 kg
[~2021-11-02 00:57] MED LIST changes: +ONDANSETRON ODT4 MG PO; -SODIUM CHLORIDE FLUSH 10 ML SYR IV PRN
[2021-11-02] MEDS ORDERED: SODIUM CHLORIDE 0.9% 1000ML 1,000 ML IV STA (01:02)
[2021-11-02] MEDS ORDERED: ONDANSETRON HCL INJ 2MG/ML 2ML 2 MG/ML VIAL IV PRN ×2 (01:15→02:00)
[2021-11-02 01:19] LABS: BASOPHILS % 0.4 % (0.0-1.0); EOSINOPHILS # (AUTO) 0.1 (0.0-0.4); HEMATOCRIT 39.8 % (38.2-49.6); HEMOGLOBIN 12.8 g/dL (14.0-18.0); LYMPHOCYTES # (AUTO) 1.5 (1.0-3.2); LYMPHOCYTES % 21.8 % (18.0-39.1); MEAN CORPUSCULAR HEMOGLOBIN 26.7 pg (28-32); MEAN CORPUSCULAR HGB CONC 32.2 g/dL (31-35); MEAN CORPUSCULAR VOLUME 82.9 fL (81-99); MONOCYTES # (AUTO) 0.7 (0.2-0.8); MONOCYTES % 9.9 % (4.4-11.3); NEUTROPHILS # (AUTO) 4.5 (2.1-6.9); NEUTROPHILS % 66.6 % (38.7-80.0); PLATELET COUNT 126 x10e3/uL (140-360); RED CELL DISTRIBUTION WIDTH 15.9 % (11.7-14.4)
[2021-11-02 01:37] LABS: ALBUMIN 3.5 g/dL (3.5-5.0); ALBUMIN/GLOBULIN RATIO 0.9 (0.8-2.0); ANION GAP 14.2 mmol/L (8-16); CALCIUM 8.9 mg/dL (8.4-10.2); CREATININE, SERUM 1.87 mg/dL (0.72-1.25); POTASSIUM 5.2 mmol/L (3.5-5.1)
[2021-11-02] MEDS ORDERED: SODIUM CHLORIDE 0.9% 500ML 500 ML IV STA (01:48)
[2021-11-02] MEDS ORDERED: FUROSEMIDE INJ 10 MG/ML 4 ML VIAL IV ONE (02:00)
[2021-11-02] MEDS ORDERED: SOD POLYSTYRENE SULFONATE SUSP 15 GM/60 ML BTL PO ONE (02:00)
[2021-11-02 03:10] LABS: CLARITY,URINE CLOUDY (CLEAR); COLOR,URINE AMBER (YELLOW); KETONES,URINE NEGATIVE (NEGATIVE); LEUKOCYTE ESTERASE ,URINE MODERATE (NEGATIVE); NITRITE,URINE NEGATIVE (NEGATIVE); PROTEIN,URINE DIPSTICK 2+ (NEGATIVE)
[2021-11-02 03:36] LABS: BACTERIA,URINE MODERATE /HPF; EPITHELIAL CELLS,URINE MODERATE /LPF; WBC,URINE (MAN) 21-50 /HPF (0-5)
[2021-11-02 06:50] VITALS: BP 136/91
[2021-11-02 08:32] VITALS: BP 138/98
[2021-11-02] MEDS ORDERED: ONDANSETRON HCL 4 MG ORAL DISINTEGRATING TAB PO PRN (11:45)
[2021-11-02 12:22] VITALS: BP 140/93
[2021-11-02 16:44] VITALS: BP 114/86
[2021-11-02] MEDS ORDERED: SITAGLIPTIN 100 MG TAB PO SCH (17:00)
[2021-11-02] MEDS ORDERED: DEXTROSE 50% SYRINGE 50 ML IV PRN (18:00)
[2021-11-02 18:01] LABS: CREATININE,URINE RANDOM 138.85 mg/dL (63-166); TOTAL PROTEIN, URINE 89.8 mg/dL (1-14)
[2021-11-02 18:41] VITALS: BP 114/86
[2021-11-02 20:00] VITALS: BP 119/90
[2021-11-02] MEDS ORDERED: ATORVASTATIN 20 MG TAB PO SCH (21:00)
[2021-11-02] MEDS ORDERED: Morphine 2mg Syringe 2 MG/ML SYR ONE (23:05)
[2021-11-02] MEDS: ENOXAPARIN SOD INJ 60 MG/0.6 ML SYR SC SCH (23:51)
[2021-11-02] MEDS: INSULIN GLARGINE 100 UNITS/ML VIAL SQ SCH (23:53)
[2021-11-02] MEDS: INSULIN REGULAR, HUMAN 100 UNIT/1 ML SQ SCH (23:53)
[2021-11-03] VITALS (8 sets, daily range): BP systolic 102–124; BP diastolic 70–96
[2021-11-03 04:52] LABS: BASOPHILS % 0.5 % (0.0-1.0); EOSINOPHILS # (AUTO) 0.1 (0.0-0.4); EOSINOPHILS % 1.3 % (0.0-6.0); HEMOGLOBIN 12.4 g/dL (14.0-18.0); LYMPHOCYTES # (AUTO) 1.6 (1.0-3.2); LYMPHOCYTES % 19.4 % (18.0-39.1); MEAN CORPUSCULAR HEMOGLOBIN 27.2 pg (28-32); MEAN CORPUSCULAR HGB CONC 33.5 g/dL (31-35); MEAN CORPUSCULAR VOLUME 81.1 fL (81-99); MONOCYTES # (AUTO) 0.9 (0.2-0.8); NEUTROPHILS # (AUTO) 5.8 (2.1-6.9); NEUTROPHILS % 68.6 % (38.7-80.0); PLATELET COUNT 132 x10e3/uL (140-360); RED BLOOD COUNT 4.56 x10e6/uL (4.3-5.7); RED CELL DISTRIBUTION WIDTH 15.6 % (11.7-14.4)
[2021-11-03 05:14] LABS: ALBUMIN/GLOBULIN RATIO 0.9 (0.8-2.0); ANION GAP 13.2 mmol/L (8-16); CALCIUM 8.2 mg/dL (8.4-10.2); CREATININE, SERUM 1.47 mg/dL (0.72-1.25); POTASSIUM 3.2 mmol/L (3.5-5.1)
[2021-11-03 05:41] LABS: MAGNESIUM 2.1 MG/DL (1.3-2.1); PHOSPHORUS 2.7 MG/DL (2.3-4.7)
[2021-11-03] MEDS: GLIPIZIDE 5 MG TAB PO SCH (07:30)
[2021-11-03] MEDS: INSULIN REGULAR, HUMAN 100 UNIT/1 ML SQ SCH ×4 (07:30→20:18)
[2021-11-03] MEDS ORDERED: METOPROLOL TARTRATE 25 MG TAB PO SCH (09:00)
[2021-11-03] MEDS ORDERED: NON-FORMULARY MEDICATION ([Eliquis] 5 MG) PO SCH (09:00)
[2021-11-03] MEDS ORDERED: APIXABAN 5 MG TABLET PO SCH (09:00)
[2021-11-03] MEDS: ENOXAPARIN SOD INJ 60 MG/0.6 ML SYR SC SCH ×2 (09:00→21:16)
[2021-11-03] MEDS ORDERED: DEXTROSE 50% SYRINGE 50 ML IV PRN (10:45)
[2021-11-03] MEDS: METOPROLOL TARTRATE 25 MG TAB PO SCH ×2 (12:36→21:16)
[2021-11-03] MEDS ORDERED: POTASSIUM CHLORIDE 20 MEQ TAB CR PO ONE (13:45)
[2021-11-03] MEDS: INSULIN GLARGINE 100 UNITS/ML VIAL SQ SCH (22:37)
[2021-11-04] VITALS: BP 116/92
[2021-11-04 01:53] LABS: % IRON SATURATION 9 % (15-50); IRON 26 ug/dL (65-175); TOTAL IRON BINDING CAPACITY 302 ug/dL (261-478); TRANSFERRIN 216 mg/dL (174-364)
[2021-11-04 04:00] VITALS: BP 132/98
[2021-11-04] MEDS: INSULIN REGULAR, HUMAN 100 UNIT/1 ML SQ SCH ×2 (07:30→11:30)
[2021-11-04] MEDS: GLIPIZIDE 5 MG TAB PO SCH (07:30)
[2021-11-04 07:43] VITALS: BP 165/100
[2021-11-04] MEDS: METOPROLOL TARTRATE 25 MG TAB PO SCH (09:06)
[2021-11-04] MEDS: ENOXAPARIN SOD INJ 60 MG/0.6 ML SYR SC SCH (09:06)
[2021-11-04 09:26] VITALS: BP 165/100
[2021-11-04 10:57] VITALS: BP 111/82
== END 2021-11-04 12:32 | disposition home or self-care (01) | DRG 445 ==
LOC: ER 01:06 → ERHOLD 01:59 → MED/SURG 06:43
DX: K80.80 Other cholelithiasis without obstruction (principal); I13.0 Hypertensive heart and chronic kidney disease with heart failure and stage 1 through stage 4 chronic kidney disease, or unspecified chronic kidney disease; I69.354 Hemiplegia and hemiparesis following cerebral infarction affecting left non-dominant side; I50.42 Chronic combined systolic (congestive) and diastolic (congestive) heart failure; N17.9 Acute kidney failure, unspecified; E87.5 Hyperkalemia; N25.89 Other disorders resulting from impaired renal tubular function; E78.5 Hyperlipidemia, unspecified; Z95.810 Presence of automatic (implantable) cardiac defibrillator; I25.10 Atherosclerotic heart disease of native coronary artery without angina pectoris; E11.43 Type 2 diabetes mellitus with diabetic autonomic (poly)neuropathy; K31.84 Gastroparesis; D64.9 Anemia, unspecified; E11.22 Type 2 diabetes mellitus with diabetic chronic kidney disease; N18.32 Chronic kidney disease, stage 3b; Z95.1 Presence of aortocoronary bypass graft; I35.0 Nonrheumatic aortic (valve) stenosis
CPT/HCPCS: 36415; 71046; 74176; 76770; 78227; 80053; 81001; 82570; 82607; 82746; 82948; 83540; 83690; 83735; 83880; 84100; 84156; 84165; 84466; 84484; 85025; 85045; 93005; 94799; 99284; A9537; J1650; J1815; J1817; J1940; J2270; J2405; J7030; J7040

== ENCOUNTER 2021-11-27 00:10 | Inpatient (IN) | payer MEDICARE, OTHER ==
[2021-11-27] VITALS (25 sets, daily range): BP systolic 101–127; BP diastolic 81–101
[~2021-11-27] VITALS: Ht 172.7 cm; Wt 79.4 kg
[2021-11-27 00:43] LABS: BASOPHILS # (AUTO) 0.1 (0.0-0.1); BASOPHILS % 0.9 % (0.0-1.0); EOSINOPHILS # (AUTO) 0.1 (0.0-0.4); EOSINOPHILS % 1.1 % (0.0-6.0); HEMATOCRIT 37.6 % (38.2-49.6); HEMOGLOBIN 12.4 g/dL (14.0-18.0); LYMPHOCYTES # (AUTO) 1.3 (1.0-3.2); LYMPHOCYTES % 23.3 % (18.0-39.1); MEAN CORPUSCULAR HEMOGLOBIN 26.5 pg (28-32); MEAN CORPUSCULAR VOLUME 80.3 fL (81-99); MONOCYTES # (AUTO) 0.7 (0.2-0.8); MONOCYTES % 11.8 % (4.4-11.3); NEUTROPHILS # (AUTO) 3.6 (2.1-6.9); NEUTROPHILS % 62.5 % (38.7-80.0); PLATELET COUNT 122 x10e3/uL (140-360); RED BLOOD COUNT 4.68 x10e6/uL (4.3-5.7); RED CELL DISTRIBUTION WIDTH 16.6 % (11.7-14.4)
[2021-11-27 00:59] LABS: ALBUMIN 3.2 g/dL (3.5-5.0); ALBUMIN/GLOBULIN RATIO 0.9 (0.8-2.0); ANION GAP 17.5 mmol/L (8-16); CALCIUM 8.8 mg/dL (8.4-10.2); CREATININE, SERUM 1.87 mg/dL (0.72-1.25); POTASSIUM 3.5 mmol/L (3.5-5.1)
[2021-11-27 01:05] LABS: CREATINE KINASE MB 2.8 ng/mL (0-5.0)
[2021-11-27] MEDS ORDERED: SODIUM CHLORIDE FLUSH 10 ML SYR INJ PRN (01:15)
[2021-11-27] MEDS ORDERED: ONDANSETRON HCL INJ 2MG/ML 2ML 2 MG/ML VIAL IV PRN (01:15)
[2021-11-27] MEDS ORDERED: FUROSEMIDE INJ 10 MG/ML 4 ML VIAL IV SCH (01:15)
[2021-11-27] MEDS: DEXTROSE 50% SYRINGE 50 ML IV PRN ×2 (07:30→11:24)
[2021-11-27] MEDS: INSULIN REGULAR, HUMAN 100 UNIT/1 ML SQ SCH ×4 (07:30→20:21)
[2021-11-27 08:47] LABS: CREATINE KINASE MB 2.5 ng/mL (0-5.0)
[2021-11-27 08:51] LABS: ABG HCO3 24 mmol/L (22-26); ABG PCO2 34 mmHg (35-45); ABG PH 7.47 (7.35-7.45); ABG PO2 135 mmHg (80-105)
[2021-11-27 08:52] LABS: ABG TCO2 25
[2021-11-27] MEDS ORDERED: ONDANSETRON HCL 4 MG ORAL DISINTEGRATING TAB PO PRN (09:00)
[2021-11-27 10:33] LABS: CHOL/HDL RATIO 4.9 (3.9-4.7)
[2021-11-27 10:40] LABS: CLARITY,URINE SL CLOUDY (CLEAR); COLOR,URINE YELLOW (YELLOW); KETONES,URINE NEGATIVE (NEGATIVE); LEUKOCYTE ESTERASE ,URINE SMALL (NEGATIVE); NITRITE,URINE NEGATIVE (NEGATIVE); PROTEIN,URINE DIPSTICK TRACE (NEGATIVE); URINE UROBILINOGEN 2 mg/dL (0.2 - 1)
[2021-11-27 10:41] LABS: AMPHETAMINES SCREEN,URINE NEGATIVE (NEGATIVE); BENZODIAZEPINES SCREEN,URINE NEGATIVE (NEGATIVE); PHENCYCLIDINE SCREEN,URINE NEGATIVE (NEGATIVE)
[2021-11-27 10:51] LABS: AMORPHOUS SEDIMENT,URINE MODERATE (FEW); BACTERIA,URINE MODERATE /HPF; EPITHELIAL CELLS,URINE FEW /LPF
[2021-11-27] MEDS: APIXABAN 5 MG TABLET PO SCH ×3 (11:23→17:48)
[2021-11-27 12:19] LABS: MAGNESIUM 2.1 MG/DL (1.3-2.1); PHOSPHORUS 3.7 MG/DL (2.3-4.7)
[2021-11-27 12:37] LABS: ALBUMIN 3.2 g/dL (3.5-5.0); ALBUMIN/GLOBULIN RATIO 0.9 (0.8-2.0); ANION GAP 17.2 mmol/L (8-16); CALCIUM 8.7 mg/dL (8.4-10.2); CREATININE, SERUM 1.63 mg/dL (0.72-1.25); POTASSIUM 3.2 mmol/L (3.5-5.1)
[2021-11-27] MEDS ORDERED: DEXTROSE 5%/0.45% SOD CHL 1,000 ML IV ONE (13:30)
[2021-11-27] MEDS: METOPROLOL TARTRATE 25 MG TAB PO SCH ×2 (17:00→17:48)
[2021-11-27] MEDS: ATORVASTATIN 20 MG TAB PO SCH (20:21)
[2021-11-27] MEDS: FUROSEMIDE INJ 10 MG/ML 4 ML VIAL IV SCH (20:30)
[2021-11-28] VITALS (11 sets, daily range): BP systolic 103–122; BP diastolic 73–96
[2021-11-28] MEDS: INSULIN REGULAR, HUMAN 100 UNIT/1 ML SQ SCH ×4 (07:30→20:37)
[2021-11-28 08:07] LABS: BASOPHILS % 0.5 % (0.0-1.0); EOSINOPHILS # (AUTO) 0.1 (0.0-0.4); EOSINOPHILS % 0.8 % (0.0-6.0); HEMATOCRIT 41.9 % (38.2-49.6); HEMOGLOBIN 13.5 g/dL (14.0-18.0); LYMPHOCYTES # (AUTO) 1.5 (1.0-3.2); LYMPHOCYTES % 17.7 % (18.0-39.1); MEAN CORPUSCULAR HGB CONC 32.2 g/dL (31-35); MEAN CORPUSCULAR VOLUME 80.6 fL (81-99); MONOCYTES # (AUTO) 0.9 (0.2-0.8); MONOCYTES % 10.4 % (4.4-11.3); NEUTROPHILS # (AUTO) 5.8 (2.1-6.9); NEUTROPHILS % 70.4 % (38.7-80.0); PLATELET COUNT 115 x10e3/uL (140-360); RED CELL DISTRIBUTION WIDTH 16.6 % (11.7-14.4)
[2021-11-28 08:35] LABS: ALBUMIN 3.2 g/dL (3.5-5.0); ALBUMIN/GLOBULIN RATIO 0.9 (0.8-2.0); ANION GAP 18.6 mmol/L (8-16); CALCIUM 8.7 mg/dL (8.4-10.2); CREATININE, SERUM 1.52 mg/dL (0.72-1.25); POTASSIUM 3.6 mmol/L (3.5-5.1)
[2021-11-28 08:58] LABS: CREATINE KINASE MB 1.7 ng/mL (0-5.0)
[2021-11-28] MEDS: FUROSEMIDE INJ 10 MG/ML 4 ML VIAL IV SCH ×2 (09:01→21:00)
[2021-11-28] MEDS: METOPROLOL TARTRATE 25 MG TAB PO SCH ×2 (09:02→16:26)
[2021-11-28] MEDS: APIXABAN 5 MG TABLET PO SCH ×2 (09:03→16:26)
[2021-11-28] MEDS: ATORVASTATIN 20 MG TAB PO SCH (21:00)
[2021-11-29] VITALS (8 sets, daily range): BP systolic 104–118; BP diastolic 71–94
[2021-11-29 06:54] LABS: ALBUMIN 3.2 g/dL (3.5-5.0); ALBUMIN/GLOBULIN RATIO 0.9 (0.8-2.0); ANION GAP 20.9 mmol/L (8-16); CALCIUM 8.9 mg/dL (8.4-10.2); CREATININE, SERUM 1.53 mg/dL (0.72-1.25); POTASSIUM 3.9 mmol/L (3.5-5.1)
[2021-11-29 07:07] LABS: MAGNESIUM 2.2 MG/DL (1.3-2.1); PHOSPHORUS 3.6 MG/DL (2.3-4.7)
[2021-11-29 07:23] LABS: BASOPHILS % 0.5 % (0.0-1.0); EOSINOPHILS # (AUTO) 0.1 (0.0-0.4); EOSINOPHILS % 0.8 % (0.0-6.0); HEMATOCRIT 39.6 % (38.2-49.6); LYMPHOCYTES # (AUTO) 1.1 (1.0-3.2); LYMPHOCYTES % 14.6 % (18.0-39.1); MEAN CORPUSCULAR HGB CONC 32.8 g/dL (31-35); MEAN CORPUSCULAR VOLUME 79.2 fL (81-99); MONOCYTES # (AUTO) 0.5 (0.2-0.8); MONOCYTES % 7.1 % (4.4-11.3); NEUTROPHILS # (AUTO) 5.9 (2.1-6.9); NEUTROPHILS % 76.7 % (38.7-80.0); PLATELET COUNT 101 x10e3/uL (140-360); RED CELL DISTRIBUTION WIDTH 16.8 % (11.7-14.4)
[2021-11-29] MEDS: DEXTROSE 50% SYRINGE 50 ML IV PRN (07:24)
[2021-11-29] MEDS ORDERED: DEXTROSE 50% SYRINGE 50 ML IV ONE (07:35)
[2021-11-29] MEDS: FUROSEMIDE INJ 10 MG/ML 4 ML VIAL IV SCH (10:00)
[2021-11-29] MEDS: APIXABAN 5 MG TABLET PO SCH ×2 (10:10→17:33)
[2021-11-29] MEDS: METOPROLOL TARTRATE 25 MG TAB PO SCH ×2 (10:10→17:34)
[2021-11-29] MEDS: FUROSEMIDE 40 MG TAB PO SCH (17:34)
[2021-11-29] MEDS: ATORVASTATIN 20 MG TAB PO SCH (20:51)
[2021-11-30] VITALS: BP 111/95
[2021-11-30 04:00] VITALS: BP 103/80
[2021-11-30] MEDS: FUROSEMIDE 40 MG TAB PO SCH (05:54)
[2021-11-30 07:57] VITALS: BP 119/89
[2021-11-30 08:14] VITALS: BP 119/89
[2021-11-30] MEDS: APIXABAN 5 MG TABLET PO SCH (09:07)
[2021-11-30] MEDS: METOPROLOL TARTRATE 25 MG TAB PO SCH (09:07)
[2021-11-30] MEDS ORDERED: FUROSEMIDE40 MG PO (09:16)
[2021-11-30] MEDS ORDERED: CEPHALEXIN500 MG PO (09:19)
[2021-11-30 11:18] VITALS: BP 114/94
== END 2021-11-30 11:39 | disposition home or self-care (01) | DRG 291 ==
LOC: ER 00:11 → MED/SURG2 01:14 → ICU 09:23 → MED/SURG3 11-28 17:50
PROVIDERS: ADMIT Internal Medicine; ATTEND Internal Medicine
PROC: 5A09357 Assistance with Respiratory Ventilation, Less than 24 Consecutive Hours, Continuous Positive Airway Pressure (ICD-10-PCS; principal; 2021-11-27)
DX: I13.0 Hypertensive heart and chronic kidney disease with heart failure and stage 1 through stage 4 chronic kidney disease, or unspecified chronic kidney disease (principal); G93.41 Metabolic encephalopathy; I50.43 Acute on chronic combined systolic (congestive) and diastolic (congestive) heart failure; J96.01 Acute respiratory failure with hypoxia; E87.2 Acidosis; R18.8 Other ascites; N39.0 Urinary tract infection, site not specified; I69.354 Hemiplegia and hemiparesis following cerebral infarction affecting left non-dominant side; N17.9 Acute kidney failure, unspecified; E11.22 Type 2 diabetes mellitus with diabetic chronic kidney disease; K76.1 Chronic passive congestion of liver; I25.2 Old myocardial infarction; N18.30 Chronic kidney disease, stage 3 unspecified; E11.649 Type 2 diabetes mellitus with hypoglycemia without coma; D69.6 Thrombocytopenia, unspecified; I25.10 Atherosclerotic heart disease of native coronary artery without angina pectoris; Z95.5 Presence of coronary angioplasty implant and graft; E80.6 Other disorders of bilirubin metabolism; Z20.822 Contact with and (suspected) exposure to COVID-19
CPT/HCPCS: 36415; 70450; 71045; 71250; 76705; 80053; 80061; 80307; 81001; 82140; 82550; 82553; 82805; 82948; 83036; 83735; 83880; 84100; 84484; 85025; 93005; 94660; 94799; 99251; 99284; J1817; J1940; J7799

== ENCOUNTER 2022-02-24 19:14 | Emergency (ER) | payer OTHER ==
[~2022-02-24] VITALS: Ht 172.7 cm; Wt 79.4 kg
[~2022-02-24 19:14] MED LIST changes: +CEPHALEXIN500 MG PO
[2022-02-24 20:15] LABS: BASOPHILS % 0.3 % (0.0-1.0); EOSINOPHILS # (AUTO) 0.1 (0.0-0.4); EOSINOPHILS % 1.5 % (0.0-6.0); HEMATOCRIT 37.9 % (38.2-49.6); HEMOGLOBIN 11.8 g/dL (14.0-18.0); LYMPHOCYTES # (AUTO) 0.8 (1.0-3.2); LYMPHOCYTES % 12.3 % (18.0-39.1); MEAN CORPUSCULAR HEMOGLOBIN 24.8 pg (28-32); MEAN CORPUSCULAR HGB CONC 31.1 g/dL (31-35); MEAN CORPUSCULAR VOLUME 79.6 fL (81-99); MONOCYTES % 15.6 % (4.4-11.3); NEUTROPHILS # (AUTO) 4.3 (2.1-6.9); NEUTROPHILS % 70.1 % (38.7-80.0); PLATELET COUNT 163 x10e3/uL (140-360); RED BLOOD COUNT 4.76 x10e6/uL (4.3-5.7)
[2022-02-24 20:38] LABS: ALBUMIN 3.3 g/dL (3.5-5.0); ANION GAP 18.4 mmol/L (8-16); CALCIUM 8.6 mg/dL (8.4-10.2); CREATININE, SERUM 1.34 mg/dL (0.72-1.25); POTASSIUM 4.4 mmol/L (3.5-5.1)
[2022-02-24 20:45] LABS: CREATINE KINASE MB 3.2 ng/mL (0-5.0)
[2022-02-24] MEDS ORDERED: FUROSEMIDE INJ 10 MG/ML 4 ML VIAL IV ONE (21:00)
[2022-02-24 22:31] VITALS: BP 125/90
== END 2022-02-24 22:58 | disposition home or self-care (01) ==
LOC: ER 19:44
DX: I50.9 Heart failure, unspecified (principal); Z86.73 Personal history of transient ischemic attack (TIA), and cerebral infarction without residual deficits; R94.31 Abnormal electrocardiogram [ECG] [EKG]
CPT/HCPCS: 36415; 71045; 80053; 82550; 82553; 83880; 84484; 85025; 93005; 99284; J1940

== ENCOUNTER 2022-03-17 09:19 | Inpatient (IN) | payer MEDICARE, OTHER ==
[~2022-03-17] VITALS: Ht 172.7 cm; Wt 64.0 kg
[2022-03-17] MEDS ORDERED: METOPROLOL TARTRATE INJ 1 MG/ML VIAL IV ONE (10:00)
[2022-03-17] MEDS ORDERED: DIGOXIN INJ 0.25 MG/ML 2 ML AMP IV ONE (10:00)
[2022-03-17] MEDS ORDERED: SODIUM CHLORIDE 0.9% 500ML 500 ML IV ONE (10:00)
[2022-03-17 10:03] LABS: BASOPHILS % 0.1 % (0.0-1.0); HEMATOCRIT 41.2 % (38.2-49.6); HEMOGLOBIN 13.2 g/dL (14.0-18.0); LYMPHOCYTES # (AUTO) 0.5 (1.0-3.2); LYMPHOCYTES % 6.3 % (18.0-39.1); MONOCYTES # (AUTO) 0.8 (0.2-0.8); MONOCYTES % 9.9 % (4.4-11.3); NEUTROPHILS # (AUTO) 6.9 (2.1-6.9); NEUTROPHILS % 83.6 % (38.7-80.0); PLATELET COUNT 165 x10e3/uL (140-360); RED BLOOD COUNT 5.28 x10e6/uL (4.3-5.7); RED CELL DISTRIBUTION WIDTH 22.7 % (11.7-14.4)
[2022-03-17] MEDS ORDERED: METOPROLOL TARTRATE INJ 1 MG/ML VIAL ONE (10:10)
[2022-03-17] MEDS ORDERED: SODIUM CHLORIDE 0.9% 500ML 500 ML ONE (10:11)
[2022-03-17 10:31] LABS: CLARITY,URINE CLOUDY (CLEAR); COLOR,URINE YELLOW (YELLOW); KETONES,URINE NEGATIVE (NEGATIVE); LEUKOCYTE ESTERASE ,URINE LARGE (NEGATIVE); NITRITE,URINE POSITIVE (NEGATIVE); PROTEIN,URINE DIPSTICK 2+ (NEGATIVE)
[2022-03-17 10:34] LABS: INR 3.76; PROTHROMBIN TIME 37.1 seconds (11.9-14.5)
[2022-03-17 10:35] LABS: PARTIAL THROMBOPLASTIN TIME 41.9 seconds (23.8-35.5)
[2022-03-17 10:37] LABS: BAND NEUTROPHILS % (MANUAL) 1 %; EOSINOPHILS % (MANUAL) 1 % (0-7); LYMPHOCYTES % (MANUAL) 8 % (19-48); MONOCYTES % (MANUAL) 5 % (3.4-9.0); NEUTROPHILS % (MANUAL) 85 % (40-74)
[2022-03-17 10:38] LABS: PLATELET ESTIMATE ADEQUATE; PLATELET MORPHOLOGY COMMENT NORMAL; RBC MORPHOLOGY COMMENT ABNORMAL
[2022-03-17 10:39] LABS: ANISOCYTOSIS MODERATE; HYPOCHROMASIA SLIGHT
[2022-03-17 10:40] LABS: BURR CELLS SLIGHT; MICROCYTOSIS SLIGHT; TARGET CELLS FEW
[2022-03-17 10:42] LABS: ALBUMIN 2.8 g/dL (3.5-5.0); ALBUMIN/GLOBULIN RATIO 0.6 (0.8-2.0); ANION GAP 16.1 mmol/L (8-16); CALCIUM 8.6 mg/dL (8.4-10.2); CREATININE, SERUM 1.56 mg/dL (0.72-1.25); MAGNESIUM 2.4 MG/DL (1.3-2.1); POTASSIUM 5.1 mmol/L (3.5-5.1)
[2022-03-17 10:44] LABS: WBC,URINE (MAN) >50 /HPF (0-5)
[2022-03-17 10:45] LABS: BACTERIA,URINE MANY /HPF; EPITHELIAL CELLS,URINE MODERATE /LPF
[2022-03-17 11:02] LABS: CREATINE KINASE MB 1.2 ng/mL (0-5.0); THYROID STIMULATING HORMONE 2.05 uIU/mL (0.350-4.940)
[2022-03-17] MEDS ORDERED: IOPAMIDOL 370 MG/ML 100 ML INFUS..BTL INJ ONE (11:51)
[2022-03-17] MEDS: METOPROLOL TARTRATE 25 MG TAB PO SCH ×2 (12:00→21:00)
[2022-03-17] MEDS ORDERED: ONDANSETRON HCL INJ 2MG/ML 2ML 2 MG/ML VIAL IV PRN (12:00)
[2022-03-17] MEDS ORDERED: LORAZEPAM INJ 2 MG/ML VIAL IV ONE (12:45)
[2022-03-17] MEDS: FUROSEMIDE INJ 10 MG/ML 4 ML VIAL IV SCH ×2 (14:32→21:10)
[2022-03-17 16:35] LABS: CREATINE KINASE MB 1.1 ng/mL (0-5.0)
[2022-03-17 17:10] VITALS: BP 133/78
[2022-03-17] MEDS: FAMOTIDINE 20 MG/2 ML VIAL IV SCH (17:14)
[2022-03-17] MEDS ORDERED: SODIUM CHLORIDE 0.9% 250ML 250 ML ONE (17:17)
[2022-03-17] MEDS ORDERED: TRAZODONE HCL50 MG PO (17:17)
[2022-03-17 17:18] VITALS: BP 133/78
[2022-03-17 17:22] VITALS: BP 133/78
[2022-03-17 20:55] VITALS: BP 120/88
[2022-03-17 21:00] VITALS: BP 120/88
[2022-03-17] MEDS: DEXTROSE 5%/0.45% SOD CHL 1,000 ML IV SCH (22:26)
[2022-03-18] VITALS (7 sets, daily range): BP systolic 114–167; BP diastolic 67–92
[2022-03-18] MEDS ORDERED: METOPROLOL TARTRATE INJ 1 MG/ML VIAL IV PRN (03:00)
[2022-03-18] MEDS ORDERED: METOPROLOL TARTRATE INJ 1 MG/ML VIAL ONE (03:12)
[2022-03-18] MEDS ORDERED: DEXTROSE 50% SYRINGE 50 ML IV PRN (05:15)
[2022-03-18] MEDS ORDERED: DEXTROSE 50% SYRINGE 50 ML IV ONE (05:34)
[2022-03-18] MEDS: METOPROLOL TARTRATE INJ 1 MG/ML VIAL IV SCH ×3 (06:00→17:14)
[2022-03-18] MEDS ORDERED: DIAZEPAM INJ 5 MG/ML 2 ML IV PRN (08:15)
[2022-03-18] MEDS: FUROSEMIDE INJ 10 MG/ML 4 ML VIAL IV SCH ×2 (08:21→21:42)
[2022-03-18] MEDS: FAMOTIDINE 20 MG/2 ML VIAL IV SCH ×2 (08:23→20:07)
[2022-03-18 09:03] LABS: HEMATOCRIT 36.7 % (38.2-49.6); HEMOGLOBIN 11.7 g/dL (14.0-18.0); LYMPHOCYTES # (AUTO) 0.3 (1.0-3.2); LYMPHOCYTES % 3.7 % (18.0-39.1); MEAN CORPUSCULAR HEMOGLOBIN 24.8 pg (28-32); MEAN CORPUSCULAR HGB CONC 31.9 g/dL (31-35); MEAN CORPUSCULAR VOLUME 77.9 fL (81-99); MONOCYTES # (AUTO) 0.7 (0.2-0.8); NEUTROPHILS # (AUTO) 8.1 (2.1-6.9); PLATELET COUNT 207 x10e3/uL (140-360); RED BLOOD COUNT 4.71 x10e6/uL (4.3-5.7); RED CELL DISTRIBUTION WIDTH 21.6 % (11.7-14.4)
[2022-03-18 09:56] LABS: CREATINE KINASE MB 0.9 ng/mL (0-5.0)
[2022-03-18 13:09] LABS: MAGNESIUM 2.2 MG/DL (1.3-2.1); PHOSPHORUS 3.4 MG/DL (2.3-4.7)
[2022-03-18 13:12] LABS: ALBUMIN 2.6 g/dL (3.5-5.0); ALBUMIN/GLOBULIN RATIO 0.6 (0.8-2.0); ANION GAP 16.3 mmol/L (8-16); CALCIUM 8.8 mg/dL (8.4-10.2); CHOL/HDL RATIO 6.2 (3.9-4.7); CREATININE, SERUM 1.32 mg/dL (0.72-1.25)
[2022-03-18 13:21] LABS: BILIRUBIN,DIRECT 4.4 mg/dL (0.0-0.5)
[2022-03-18 13:36] LABS: POTASSIUM 2.3 mmol/L (3.5-5.1)
[2022-03-18] MEDS: DEXTROSE 5% 1,000 ML IV SCH (15:37)
[2022-03-18] MEDS: POTASSIUM CHLORIDE 20MEQ/100ML 100 ML IV SCH ×3 (15:43→20:11)
[2022-03-18] MEDS ORDERED: POTASSIUM CHLORIDE 20MEQ/100ML 300 ML IV ONE (16:00)
[2022-03-19] VITALS (8 sets, daily range): BP systolic 114–136; BP diastolic 72–99
[2022-03-19] MEDS: DEXTROSE 5%/0.45% SOD CHL 1,000 ML IV SCH (01:23)
[2022-03-19] MEDS: METOPROLOL TARTRATE INJ 1 MG/ML VIAL IV SCH ×4 (01:27→17:36)
[2022-03-19 05:07] LABS: INR 1.89; PROTHROMBIN TIME 21.9 seconds (11.9-14.5)
[2022-03-19 05:20] LABS: ALBUMIN 2.4 g/dL (3.5-5.0); ALBUMIN/GLOBULIN RATIO 0.6 (0.8-2.0); ANION GAP 15.7 mmol/L (8-16); CALCIUM 8.5 mg/dL (8.4-10.2); CREATININE, SERUM 1.38 mg/dL (0.72-1.25)
[2022-03-19 05:23] LABS: POTASSIUM 2.7 mmol/L (3.5-5.1)
[2022-03-19 05:30] LABS: MAGNESIUM 2.2 MG/DL (1.3-2.1); PHOSPHORUS 3.3 MG/DL (2.3-4.7)
[2022-03-19] MEDS ORDERED: POTASSIUM CHLORIDE 10MEQ/100ML 300 ML IV ONE (05:45)
[2022-03-19] MEDS ORDERED: POTASSIUM CHLORIDE 10MEQ/100ML 100 ML IV ONE (06:00)
[2022-03-19] MEDS ORDERED: POTASSIUM CHLORIDE 30 MEQ in SODIUM CHLORIDE 0.9% 100 ML IV ONE (09:00)
[2022-03-19] MEDS: FUROSEMIDE INJ 10 MG/ML 4 ML VIAL IV SCH ×2 (09:40→22:08)
[2022-03-19] MEDS: POTASSIUM CHLORIDE 10MEQ/100ML 100 ML INJ SCH ×3 (09:41→11:56)
[2022-03-19] MEDS: FAMOTIDINE 20 MG/2 ML VIAL IV SCH ×2 (09:41→18:00)
[2022-03-19] MEDS: DEXTROSE 5% 1,000 ML IV SCH (11:59)
[2022-03-19 14:11] LABS: ANION GAP 25.2 mmol/L (8-16); CREATININE, SERUM 1.35 mg/dL (0.72-1.25); POTASSIUM 3.2 mmol/L (3.5-5.1)
[2022-03-20] VITALS (8 sets, daily range): BP systolic 115–151; BP diastolic 72–96
[2022-03-20] MEDS: METOPROLOL TARTRATE INJ 1 MG/ML VIAL IV SCH ×5 (02:29→18:20)
[2022-03-20] MEDS: DEXTROSE 5% 1,000 ML IV SCH ×3 (05:39→17:16)
[2022-03-20 06:26] LABS: BASOPHILS % 0.1 % (0.0-1.0); EOSINOPHILS % 0.3 % (0.0-6.0); LYMPHOCYTES # (AUTO) 0.8 (1.0-3.2); LYMPHOCYTES % 9.3 % (18.0-39.1); MEAN CORPUSCULAR HEMOGLOBIN 24.8 pg (28-32); MEAN CORPUSCULAR HGB CONC 31.6 g/dL (31-35); MEAN CORPUSCULAR VOLUME 78.7 fL (81-99); MONOCYTES # (AUTO) 0.9 (0.2-0.8); MONOCYTES % 10.2 % (4.4-11.3); NEUTROPHILS % 79.6 % (38.7-80.0); PLATELET COUNT 167 x10e3/uL (140-360); RED BLOOD COUNT 4.83 x10e6/uL (4.3-5.7); RED CELL DISTRIBUTION WIDTH 22.4 % (11.7-14.4)
[2022-03-20 06:46] LABS: ANION GAP 23.9 mmol/L (8-16); CALCIUM 9.3 mg/dL (8.4-10.2); CREATININE, SERUM 1.75 mg/dL (0.72-1.25); MAGNESIUM 2.5 MG/DL (1.3-2.1); PHOSPHORUS 4.6 MG/DL (2.3-4.7); POTASSIUM 3.9 mmol/L (3.5-5.1)
[2022-03-20 08:07] LABS: ALBUMIN 2.4 g/dL (3.5-5.0); BILIRUBIN,DIRECT 5.1 mg/dL (0.0-0.5)
[2022-03-20] MEDS: FAMOTIDINE 20 MG/2 ML VIAL IV SCH ×2 (09:01→17:15)
[2022-03-21] MEDS: METOPROLOL TARTRATE INJ 1 MG/ML VIAL IV SCH ×4 (00:54→17:36)
[2022-03-21 06:38] LABS: ALBUMIN 2.4 g/dL (3.5-5.0); ALBUMIN/GLOBULIN RATIO 0.5 (0.8-2.0); ANION GAP 22.6 mmol/L (8-16); CREATININE, SERUM 2.23 mg/dL (0.72-1.25); POTASSIUM 3.6 mmol/L (3.5-5.1)
[2022-03-21] MEDS ORDERED: LACTULOSE SYRUP 20 GM/30 ML UDC PO PRN (06:45)
[2022-03-21] MEDS: FAMOTIDINE 20 MG/2 ML VIAL IV SCH ×2 (07:47→20:34)
[2022-03-21 08:00] VITALS: BP 111/99
[2022-03-21 08:10] VITALS: BP 111/99
[2022-03-21] MEDS: DEXTROSE 5% 1,000 ML IV SCH ×2 (08:26→20:33)
[2022-03-21 11:27] VITALS: BP 117/89
[2022-03-21 15:59] VITALS: BP 114/87
[2022-03-21 20:00] VITALS: BP 120/96
[2022-03-21 21:22] VITALS: BP 120/96
[2022-03-22] VITALS (7 sets, daily range): BP systolic 113–132; BP diastolic 78–99
[2022-03-22] MEDS: DEXTROSE 5% 1,000 ML IV SCH ×2 (06:06→11:25)
[2022-03-22] MEDS: METOPROLOL TARTRATE INJ 1 MG/ML VIAL IV SCH ×4 (06:06→17:20)
[2022-03-22 06:47] LABS: ALBUMIN 2.4 g/dL (3.5-5.0); ALBUMIN/GLOBULIN RATIO 0.5 (0.8-2.0); ANION GAP 18.2 mmol/L (8-16); CALCIUM 8.5 mg/dL (8.4-10.2); CREATININE, SERUM 2.15 mg/dL (0.72-1.25); POTASSIUM 3.2 mmol/L (3.5-5.1)
[2022-03-22] MEDS: FAMOTIDINE 20 MG/2 ML VIAL IV SCH ×2 (08:35→20:18)
[2022-03-22] MEDS ORDERED: POTASSIUM CHLORIDE 20MEQ/100ML 100 ML IV ONE ×2 (10:00→11:00)
[2022-03-22] MEDS ORDERED: DEXTROSE 5%/0.225% SOD CHL 1,000 ML IV SCH (10:45)
[2022-03-22 12:05] LABS: COLOR,URINE YELLOW (YELLOW); KETONES,URINE TRACE (NEGATIVE); LEUKOCYTE ESTERASE ,URINE NEGATIVE (NEGATIVE); NITRITE,URINE NEGATIVE (NEGATIVE); PROTEIN,URINE DIPSTICK 1+ (NEGATIVE)
[2022-03-22 12:06] LABS: CLARITY,URINE CLOUDY (CLEAR)
[2022-03-22 12:12] LABS: BACTERIA,URINE MODERATE /HPF; EPITHELIAL CELLS,URINE FEW /LPF; RBC,URINE >50 /HPF (0-5)
[2022-03-22 16:01] LABS: ABG HCO3 25 mmol/L (22-26); ABG PCO2 34 mmHg (35-45); ABG PH 7.48 (7.35-7.45); ABG PO2 188 mmHg (80-105); ABG TCO2 26
[2022-03-23] MEDS: METOPROLOL TARTRATE INJ 1 MG/ML VIAL IV SCH ×4 (00:48→18:00)
[2022-03-23] MEDS: DEXTROSE 5% 1,000 ML IV SCH ×2 (00:58→08:41)
[2022-03-23 04:40] VITALS: BP 121/98
[2022-03-23] MEDS: FAMOTIDINE 20 MG/2 ML VIAL IV SCH ×2 (06:22→20:32)
[2022-03-23 08:15] VITALS: BP 110/83
[2022-03-23 10:06] LABS: ALBUMIN 2.4 g/dL (3.5-5.0); ALBUMIN/GLOBULIN RATIO 0.5 (0.8-2.0); ANION GAP 20.4 mmol/L (8-16); CALCIUM 8.6 mg/dL (8.4-10.2); CREATININE, SERUM 1.92 mg/dL (0.72-1.25); POTASSIUM 3.4 mmol/L (3.5-5.1)
[2022-03-23 12:18] VITALS: BP 114/98
[2022-03-23 16:45] VITALS: BP 120/90
[2022-03-23 20:05] VITALS: BP 120/90
[2022-03-24] MEDS: METOPROLOL TARTRATE INJ 1 MG/ML VIAL IV SCH ×2 (01:14→06:08)
[2022-03-24] MEDS: FAMOTIDINE 20 MG/2 ML VIAL IV SCH ×2 (06:08→18:07)
[2022-03-24 06:35] LABS: ALBUMIN 2.2 g/dL (3.5-5.0); ALBUMIN/GLOBULIN RATIO 0.5 (0.8-2.0); ANION GAP 18.3 mmol/L (8-16); CALCIUM 8.2 mg/dL (8.4-10.2); CREATININE, SERUM 1.46 mg/dL (0.72-1.25); POTASSIUM 3.3 mmol/L (3.5-5.1)
[2022-03-24 08:00] VITALS: BP 119/90
[2022-03-24 08:43] VITALS: BP 119/90
[2022-03-24] MEDS: LACTULOSE SYRUP 20 GM/30 ML UDC PO SCH ×2 (08:57→19:51)
[2022-03-24] MEDS ORDERED: METOPROLOL TARTRATE INJ 1 MG/ML VIAL IV PRN (11:15)
[2022-03-24 11:57] VITALS: BP 119/97
[2022-03-24] MEDS ORDERED: POTASSIUM CHLORIDE 20 MEQ TAB CR PO ONE (12:45)
[2022-03-24 16:12] VITALS: BP 132/91
[2022-03-25] VITALS (7 sets, daily range): BP systolic 110–132; BP diastolic 81–92
[2022-03-25] MEDS: FAMOTIDINE 20 MG/2 ML VIAL IV SCH ×2 (06:50→20:29)
[2022-03-25] MEDS: METOPROLOL SUCCINATE 50 MG TAB XL PO SCH (09:21)
[2022-03-25] MEDS: LACTULOSE SYRUP 20 GM/30 ML UDC PO SCH ×2 (09:22→20:29)
[2022-03-25 09:30] LABS: BASOPHILS % 0.2 % (0.0-1.0); EOSINOPHILS # (AUTO) 0.1 (0.0-0.4); EOSINOPHILS % 1.2 % (0.0-6.0); HEMATOCRIT 38.4 % (38.2-49.6); HEMOGLOBIN 12.5 g/dL (14.0-18.0); LYMPHOCYTES # (AUTO) 0.6 (1.0-3.2); LYMPHOCYTES % 8.4 % (18.0-39.1); MEAN CORPUSCULAR HEMOGLOBIN 25.1 pg (28-32); MEAN CORPUSCULAR HGB CONC 32.6 g/dL (31-35); MONOCYTES # (AUTO) 0.4 (0.2-0.8); NEUTROPHILS # (AUTO) 5.6 (2.1-6.9); NEUTROPHILS % 83.9 % (38.7-80.0); PLATELET COUNT 118 x10e3/uL (140-360); RED BLOOD COUNT 4.99 x10e6/uL (4.3-5.7); RED CELL DISTRIBUTION WIDTH 22.9 % (11.7-14.4)
[2022-03-25 11:54] LABS: ANION GAP 18.9 mmol/L (8-16); CALCIUM 8.7 mg/dL (8.4-10.2); CREATININE, SERUM 1.4 mg/dL (0.72-1.25); POTASSIUM 3.9 mmol/L (3.5-5.1)
[2022-03-26 03:42] VITALS: BP 132/92
[2022-03-26] MEDS: FAMOTIDINE 20 MG/2 ML VIAL IV SCH ×2 (05:55→20:06)
[2022-03-26 06:12] LABS: ALBUMIN 2.4 g/dL (3.5-5.0); ALBUMIN/GLOBULIN RATIO 0.5 (0.8-2.0); ANION GAP 12.6 mmol/L (8-16); CALCIUM 8.6 mg/dL (8.4-10.2); CREATININE, SERUM 1.24 mg/dL (0.72-1.25); POTASSIUM 3.6 mmol/L (3.5-5.1)
[2022-03-26] MEDS: LACTULOSE SYRUP 20 GM/30 ML UDC PO SCH ×2 (10:46→20:25)
[2022-03-26] MEDS: METOPROLOL SUCCINATE 50 MG TAB XL PO SCH (11:38)
[2022-03-26 13:29] VITALS: BP 119/97
[2022-03-26 17:53] VITALS: BP 125/93
[2022-03-26 20:00] VITALS: BP 125/95
[2022-03-27] VITALS (8 sets, daily range): BP systolic 108–133; BP diastolic 83–98
[2022-03-27] MEDS: FAMOTIDINE 20 MG/2 ML VIAL IV SCH ×2 (06:49→09:05)
[2022-03-27] MEDS: LACTULOSE SYRUP 20 GM/30 ML UDC PO SCH ×2 (09:05→21:49)
[2022-03-27] MEDS: METOPROLOL SUCCINATE 50 MG TAB XL PO SCH (09:05)
[2022-03-27] MEDS: FUROSEMIDE 40 MG TAB PO SCH (09:05)
[2022-03-28] VITALS (7 sets, daily range): BP systolic 105–125; BP diastolic 81–97
[2022-03-28] MEDS: FAMOTIDINE 20 MG/2 ML VIAL IV SCH ×2 (05:08→20:18)
[2022-03-28 05:45] LABS: ALBUMIN 2.5 g/dL (3.5-5.0); ALBUMIN/GLOBULIN RATIO 0.5 (0.8-2.0); ANION GAP 18.3 mmol/L (8-16); CALCIUM 9.1 mg/dL (8.4-10.2); CREATININE, SERUM 1.25 mg/dL (0.72-1.25); POTASSIUM 4.3 mmol/L (3.5-5.1)
[2022-03-28] MEDS: METOPROLOL SUCCINATE 50 MG TAB XL PO SCH (09:01)
[2022-03-28] MEDS: FUROSEMIDE 40 MG TAB PO SCH (09:01)
[2022-03-28] MEDS: LACTULOSE SYRUP 20 GM/30 ML UDC PO SCH ×2 (09:01→20:18)
[2022-03-29] MEDS: FAMOTIDINE 20 MG/2 ML VIAL IV SCH ×2 (06:38→08:59)
[2022-03-29] MEDS ORDERED: ONDANSETRON HCL 4 MG ORAL DISINTEGRATING TAB PO PRN (08:00)
[2022-03-29 08:34] VITALS: BP 125/93
[2022-03-29 08:44] VITALS: BP 127/87
[2022-03-29] MEDS: FUROSEMIDE 40 MG TAB PO SCH (08:58)
[2022-03-29] MEDS: LACTULOSE SYRUP 20 GM/30 ML UDC PO SCH ×2 (08:58→21:00)
[2022-03-29] MEDS: METOPROLOL SUCCINATE 50 MG TAB XL PO SCH (08:59)
[2022-03-29] MEDS ORDERED: DEXTROSE 5% 1,000 ML IV ONE (11:00)
[2022-03-29 12:36] VITALS: BP 125/89
[2022-03-29 16:51] VITALS: BP 130/91
[2022-03-29 21:09] VITALS: BP 109/88
[2022-03-29 22:10] VITALS: BP 109/88
[2022-03-30] VITALS (8 sets, daily range): BP systolic 112–130; BP diastolic 78–97
[2022-03-30 05:59] LABS: ALBUMIN 2.5 g/dL (3.5-5.0); ALBUMIN/GLOBULIN RATIO 0.6 (0.8-2.0); ANION GAP 17.2 mmol/L (8-16); CALCIUM 9.1 mg/dL (8.4-10.2); CREATININE, SERUM 1.52 mg/dL (0.72-1.25); POTASSIUM 4.2 mmol/L (3.5-5.1)
[2022-03-30] MEDS: FAMOTIDINE 20 MG/2 ML VIAL IV SCH ×2 (07:00→21:24)
[2022-03-30] MEDS: LACTULOSE SYRUP 20 GM/30 ML UDC PO SCH ×2 (09:00→21:00)
[2022-03-30] MEDS: FUROSEMIDE 40 MG TAB PO SCH (09:00)
[2022-03-30] MEDS: METOPROLOL SUCCINATE 50 MG TAB XL PO SCH (09:08)
[2022-03-31] MEDS: FAMOTIDINE 20 MG/2 ML VIAL IV SCH ×2 (06:39→08:16)
[2022-03-31 07:40] VITALS: BP 122/84
[2022-03-31] MEDS: LACTULOSE SYRUP 20 GM/30 ML UDC PO SCH ×2 (08:16→20:04)
[2022-03-31] MEDS: FUROSEMIDE 40 MG TAB PO SCH (08:16)
[2022-03-31] MEDS: METOPROLOL SUCCINATE 50 MG TAB XL PO SCH (08:17)
[2022-03-31 08:26] VITALS: BP 122/84
[2022-03-31] MEDS ORDERED: DEXTROSE 5% 1,000 ML IV ONE (11:00)
[2022-03-31 11:34] VITALS: BP 126/86
[2022-03-31 15:31] VITALS: BP 115/92
[2022-03-31 20:00] VITALS: BP 121/89
[2022-03-31 20:18] VITALS: BP 121/89
[2022-04-01] VITALS (7 sets, daily range): BP systolic 113–130; BP diastolic 84–99
[2022-04-01 06:23] LABS: ALBUMIN 2.5 g/dL (3.5-5.0); ALBUMIN/GLOBULIN RATIO 0.6 (0.8-2.0); ANION GAP 17.7 mmol/L (8-16); CREATININE, SERUM 1.49 mg/dL (0.72-1.25); POTASSIUM 3.7 mmol/L (3.5-5.1)
[2022-04-01] MEDS: FAMOTIDINE 20 MG/2 ML VIAL IV SCH ×2 (07:28→10:36)
[2022-04-01] MEDS: LACTULOSE SYRUP 20 GM/30 ML UDC PO SCH ×2 (09:00→20:42)
[2022-04-01] MEDS: FUROSEMIDE 40 MG TAB PO SCH (09:00)
[2022-04-01] MEDS: METOPROLOL SUCCINATE 50 MG TAB XL PO SCH (09:00)
[2022-04-01] MEDS ORDERED: FUROSEMIDE INJ 10 MG/ML 4 ML VIAL IV ONE (11:15)
[2022-04-01] MEDS ORDERED: METOPROLOL TARTRATE INJ 1 MG/ML VIAL IV PRN (22:15)
[2022-04-02] VITALS (7 sets, daily range): BP systolic 115–128; BP diastolic 61–97
[2022-04-02 06:02] LABS: BASOPHILS % 0.2 % (0.0-1.0); EOSINOPHILS % 0.5 % (0.0-6.0); HEMATOCRIT 38.5 % (38.2-49.6); HEMOGLOBIN 12.7 g/dL (14.0-18.0); LYMPHOCYTES # (AUTO) 0.5 (1.0-3.2); LYMPHOCYTES % 9.7 % (18.0-39.1); MEAN CORPUSCULAR HEMOGLOBIN 25.7 pg (28-32); MEAN CORPUSCULAR VOLUME 77.8 fL (81-99); MONOCYTES # (AUTO) 0.5 (0.2-0.8); MONOCYTES % 9.3 % (4.4-11.3); NEUTROPHILS # (AUTO) 4.4 (2.1-6.9); NEUTROPHILS % 79.9 % (38.7-80.0); PLATELET COUNT 107 x10e3/uL (140-360); RED BLOOD COUNT 4.95 x10e6/uL (4.3-5.7); RED CELL DISTRIBUTION WIDTH 26.2 % (11.7-14.4)
[2022-04-02 06:34] LABS: ANION GAP 16.6 mmol/L (8-16); CALCIUM 8.9 mg/dL (8.4-10.2); CREATININE, SERUM 1.35 mg/dL (0.72-1.25); POTASSIUM 3.6 mmol/L (3.5-5.1)
[2022-04-02] MEDS: FUROSEMIDE 40 MG TAB PO SCH (09:00)
[2022-04-02] MEDS: METOPROLOL SUCCINATE 50 MG TAB XL PO SCH (09:00)
[2022-04-02] MEDS: LACTULOSE SYRUP 20 GM/30 ML UDC PO SCH ×2 (09:00→21:00)
[2022-04-02] MEDS: FAMOTIDINE 20 MG/2 ML VIAL IV SCH ×2 (09:21→19:47)
[2022-04-03] VITALS (7 sets, daily range): BP systolic 112–132; BP diastolic 64–95
[2022-04-03] MEDS: FAMOTIDINE 20 MG/2 ML VIAL IV SCH (07:39)
[2022-04-03] MEDS: LACTULOSE SYRUP 20 GM/30 ML UDC PO SCH (08:48)
[2022-04-03] MEDS: FUROSEMIDE 40 MG TAB PO SCH (08:49)
[2022-04-03] MEDS: METOPROLOL SUCCINATE 50 MG TAB XL PO SCH (08:49)
[2022-04-03 10:10] LABS: BASOPHILS % 0.2 % (0.0-1.0); EOSINOPHILS % 0.6 % (0.0-6.0); HEMOGLOBIN 12.3 g/dL (14.0-18.0); LYMPHOCYTES # (AUTO) 0.4 (1.0-3.2); LYMPHOCYTES % 6.6 % (18.0-39.1); MEAN CORPUSCULAR HEMOGLOBIN 25.4 pg (28-32); MEAN CORPUSCULAR HGB CONC 30.8 g/dL (31-35); MEAN CORPUSCULAR VOLUME 82.5 fL (81-99); MONOCYTES # (AUTO) 0.5 (0.2-0.8); MONOCYTES % 7.3 % (4.4-11.3); NEUTROPHILS # (AUTO) 5.2 (2.1-6.9); PLATELET COUNT 89 x10e3/uL (140-360); RED BLOOD COUNT 4.85 x10e6/uL (4.3-5.7); RED CELL DISTRIBUTION WIDTH 26.7 % (11.7-14.4)
[2022-04-03 10:30] LABS: ANION GAP 16.6 mmol/L (8-16); CALCIUM 8.9 mg/dL (8.4-10.2); CREATININE, SERUM 1.26 mg/dL (0.72-1.25); POTASSIUM 3.6 mmol/L (3.5-5.1)
== END 2022-04-03 18:21 | disposition hospice, home (50) | DRG 871 ==
LOC: ER 09:27 → ERHOLD 11:57 → MED/SURG2 16:50
PROVIDERS: ADMIT Internal Medicine; ATTEND Internal Medicine
PROC: 3E04329 Introduction of Other Anti-infective into Central Vein, Percutaneous Approach (ICD-10-PCS; 2022-03-17)
PROC: 02HV33Z Insertion of Infusion Device into Superior Vena Cava, Percutaneous Approach (ICD-10-PCS; principal; 2022-03-18)
PROC: 02HV33Z Insertion of Infusion Device into Superior Vena Cava, Percutaneous Approach (ICD-10-PCS; 2022-03-30)
DX: A41.51 Sepsis due to Escherichia coli [E. coli] (principal); G93.41 Metabolic encephalopathy; I50.43 Acute on chronic combined systolic (congestive) and diastolic (congestive) heart failure; I13.0 Hypertensive heart and chronic kidney disease with heart failure and stage 1 through stage 4 chronic kidney disease, or unspecified chronic kidney disease; E87.0 Hyperosmolality and hypernatremia; N17.9 Acute kidney failure, unspecified; I69.354 Hemiplegia and hemiparesis following cerebral infarction affecting left non-dominant side; D68.9 Coagulation defect, unspecified; R65.20 Severe sepsis without septic shock; E11.22 Type 2 diabetes mellitus with diabetic chronic kidney disease; Z79.4 Long term (current) use of insulin; E80.7 Disorder of bilirubin metabolism, unspecified; Z95.810 Presence of automatic (implantable) cardiac defibrillator; K76.0 Fatty (change of) liver, not elsewhere classified; E78.5 Hyperlipidemia, unspecified; E11.69 Type 2 diabetes mellitus with other specified complication; I25.10 Atherosclerotic heart disease of native coronary artery without angina pectoris; Z98.61 Coronary angioplasty status; I48.0 Paroxysmal atrial fibrillation; Z79.01 Long term (current) use of anticoagulants; I25.5 Ischemic cardiomyopathy; E86.0 Dehydration; E87.6 Hypokalemia; Z91.14 Patient's other noncompliance with medication regimen; N28.1 Cyst of kidney, acquired; K80.20 Calculus of gallbladder without cholecystitis without obstruction; N18.32 Chronic kidney disease, stage 3b; K76.1 Chronic passive congestion of liver; Z20.822 Contact with and (suspected) exposure to COVID-19; I25.2 Old myocardial infarction
CPT/HCPCS: 36415; 36569; 36600; 70450; 71045; 71250; 74176; 76705; 76770; 80048; 80053; 80061; 80076; 81001; 82140; 82248; 82550; 82553; 82607; 82746; 82805; 82948; 83010; 83540; 83615; 83735; 83880; 84100; 84155; 84295; 84443; 84466; 84484; 85025; 85045; 85379; 85610; 85730; 87040; 87086; 87186; 93005; 93306; 93971; 94799; 99251; 99284; J0696; J1940; J2060; J2405; J2543; J3480; J7040; J7050; J7070; J7799; Q9967